=== PATIENT | female | born 1925 | race Caucasian/White ===

== ENCOUNTER 2016-03-04 | Outpatient (CLI) | payer MEDICARE, OTHER | END 2016-03-04 22:01 | disposition critical access hospital (66) | DX: R06.00 Dyspnea, unspecified (principal) | CPT/HCPCS: A0425; A0427 ==

== ENCOUNTER 2016-03-04 22:13 | Emergency (ER) | payer MEDICARE, OTHER ==
[2016-03-04] MEDS ORDERED: predniSONE 20 MG TABLET PO STA (23:26)
[2016-03-04] MEDS ORDERED: predniSONE 20 MG TABLET ONE (23:39)
[2016-03-05] MEDS ORDERED: ALBUTEROL NEB 2.5 MG/3 ML INH STA (02:49)
[2016-03-05] MEDS ORDERED: ALBUTEROL NEB 2.5 MG/3 ML INH ONE (02:53)
== END 2016-03-05 08:28 | disposition home or self-care (01) ==
DX: J45.901 Unspecified asthma with (acute) exacerbation (principal); J44.9 Chronic obstructive pulmonary disease, unspecified; I50.9 Heart failure, unspecified; G62.9 Polyneuropathy, unspecified; F03.90 Unspecified dementia, unspecified severity, without behavioral disturbance, psychotic disturbance, mood disturbance, and anxiety; Z79.02 Long term (current) use of antithrombotics/antiplatelets
CPT/HCPCS: 71020; 94640; 99283; 99284; J7512; J7613

== ENCOUNTER 2016-03-13 | Outpatient (CLI) | payer MEDICARE, OTHER | END 2016-03-13 15:53 | disposition critical access hospital (66) | DX: R06.02 Shortness of breath (principal) | CPT/HCPCS: A0425; A0429 ==

== ENCOUNTER 2016-03-13 16:06 | Emergency (ER) | payer MEDICARE, OTHER ==
[2016-03-13] MEDS ORDERED: ALBUTEROL NEB 2.5 MG/3 ML INH STA (16:14)
[2016-03-13] MEDS ORDERED: ALBUTEROL NEB 2.5 MG/3 ML INH ONE (16:27)
== END 2016-03-13 18:16 | disposition home or self-care (01) ==
DX: J45.901 Unspecified asthma with (acute) exacerbation (principal); I50.9 Heart failure, unspecified; F03.90 Unspecified dementia, unspecified severity, without behavioral disturbance, psychotic disturbance, mood disturbance, and anxiety; G62.9 Polyneuropathy, unspecified; M54.9 Dorsalgia, unspecified; G89.29 Other chronic pain
CPT/HCPCS: 94640; 99283; 99284; J7613

== ENCOUNTER 2016-05-02 | Outpatient (CLI) | payer MEDICARE, OTHER | END 2016-05-02 13:48 | disposition critical access hospital (66) | DX: R06.00 Dyspnea, unspecified (principal) | CPT/HCPCS: A0425; A0427 ==

== ENCOUNTER 2016-05-02 13:48 | Emergency (ER) | payer MEDICARE, OTHER ==
[2016-05-02] MEDS ORDERED: ALBUTEROL NEB 2.5 MG/3 ML INH STA (14:15)
[2016-05-02] MEDS ORDERED: predniSONE 20 MG TABLET PO STA (14:16)
[2016-05-02] MEDS ORDERED: predniSONE 20 MG TABLET ONE (14:24)
[2016-05-02] MEDS ORDERED: IPRATROPIUM/ALBUTEROL 3 ML NEB INH STA (15:02)
[2016-05-02] MEDS ORDERED: IPRATROPIUM/ALBUTEROL 3 ML NEB INH ONE (15:08)
[2016-05-02] MEDS ORDERED: ALBUTEROL NEB 2.5 MG/3 ML INH ONE (15:08)
== END 2016-05-02 18:33 | disposition home or self-care (01) ==
DX: J45.901 Unspecified asthma with (acute) exacerbation (principal); I50.9 Heart failure, unspecified; G62.9 Polyneuropathy, unspecified
CPT/HCPCS: 36415; 71010; 80053; 83690; 94640; 99283; 99284; J7512; J7613; J7620

== ENCOUNTER 2016-05-03 | Outpatient (CLI) | payer MEDICARE, OTHER | END 2016-05-03 16:33 | disposition critical access hospital (66) | DX: R06.00 Dyspnea, unspecified (principal) | CPT/HCPCS: A0425; A0427 ==

== ENCOUNTER 2016-05-03 16:52 | Inpatient (IN) | payer MEDICARE, OTHER ==
[2016-05-03] MEDS ORDERED: methylPREDNISolone SUCCINATE 125 MG/2 ML VIAL IVP STA (16:58)
[2016-05-03] MEDS ORDERED: ALBUTEROL NEB 2.5 MG/3 ML INH STA (16:58)
[2016-05-03] MEDS ORDERED: ALBUTEROL NEB 2.5 MG/3 ML INH ONE (17:06)
[2016-05-03] MEDS ORDERED: ONDANSETRON ODT 4 MG TABLET TL PRN (17:42)
[2016-05-03] MEDS ORDERED: ACETAMINOPHEN 325 MG TABLET PO PRN (17:42)
[2016-05-03] MEDS ORDERED: IPRATROPIUM/ALBUTEROL 3 ML NEB INH PRN (17:49)
[2016-05-03] MEDS: IPRATROPIUM/ALBUTEROL 3 ML NEB INH PRN ×3 (19:55→23:20)
[2016-05-03] MEDS ORDERED: methylPREDNISolone SUCCINATE 40 MG/ML VIAL IVP SCH (22:00)
[2016-05-03] MEDS ORDERED: AZITHROMYCIN 250 MG TABLET PO SCH (22:00)
[2016-05-03] MEDS ORDERED: predniSONE 20 MG TABLET PO SCH (22:00)
[2016-05-03] MEDS ORDERED: methylPREDNISolone SUCCINATE 125 MG/2 ML VIAL IVP SCH (22:35)
[2016-05-03] MEDS: CARVEDILOL 3.125 MG TABLET PO SCH (22:50)
[2016-05-03] MEDS: ATORVASTATIN 10 MG TABLET PO SCH (22:50)
[2016-05-03] MEDS ORDERED: guaiFENesin 600 MG TABLET PO PRN (22:50)
[2016-05-03] MEDS: SODIUM CHLORIDE 0.9% 1,000 ML IV SCH (22:51)
[2016-05-03] MEDS: SODIUM CHLORIDE FLUSH 0.9% 10 ML SYRINGE IVP SCH (22:52)
[2016-05-04] MEDS: IPRATROPIUM/ALBUTEROL 3 ML NEB INH PRN ×7 (01:50→21:30)
[2016-05-04] MEDS: BUTALB/ACETAM/CAFF 50/325/40MG TABLET PO PRN ×3 (01:54→08:13)
[2016-05-04] MEDS: ACETAMINOPHEN/CODEINE 300 MG/30 MG TABLET PO PRN ×3 (01:54→08:12)
[2016-05-04] MEDS: SODIUM CHLORIDE FLUSH 0.9% 10 ML SYRINGE IVP SCH ×3 (05:10→22:11)
[2016-05-04] MEDS: methylPREDNISolone SUCCINATE 40 MG/ML VIAL IVP SCH ×3 (05:49→22:10)
[2016-05-04] MEDS: SODIUM CHLORIDE 0.9% 1,000 ML IV SCH (06:39)
[2016-05-04] MEDS ORDERED: MORPHINE 10 MG/ML VIAL IVP ONE (08:30)
[2016-05-04] MEDS ORDERED: MORPHINE 2 MG/ML SYRINGE IVP ONE (08:30)
[2016-05-04] MEDS ORDERED: ENOXAPARIN 40 MG/0.4 ML SYRINGE SUBQ SCH (09:00)
[2016-05-04] MEDS: CARVEDILOL 3.125 MG TABLET PO SCH ×2 (09:59→22:11)
[2016-05-04] MEDS: CLOPIDOGREL 75 MG TABLET PO SCH (10:01)
[2016-05-04] MEDS: CITALOPRAM 10 MG TABLET PO SCH (10:01)
[2016-05-04] MEDS: AZITHROMYCIN INJ 500 MG in SODIUM CHLORIDE 0.9% 250 ML IV SCH (10:04)
[2016-05-04] MEDS: LORATADINE 10 MG TABLET PO SCH (10:36)
[2016-05-04] MEDS: LISINOPRIL 5 MG TABLET PO SCH (10:37)
[2016-05-04] MEDS ORDERED: LORazepam 2 MG/ML SYRINGE IVP PRN (11:18)
[2016-05-04] MEDS: POLYETHYLENE GLYCOL 3350 17 GM PACKET PO SCH (12:36)
[2016-05-04] MEDS: DEXTROSE 5% IV SCH ×2 (12:39→22:57)
[2016-05-04] MEDS: SODIUM BICARBONATE IV SCH ×2 (12:39→22:57)
[2016-05-04] MEDS: SODIUM CHLORIDE FLUSH 0.9% 10 ML SYRINGE IVP PRN (14:56)
[2016-05-04] MEDS: MORPHINE 2 MG/ML SYRINGE IVP PRN (21:52)
[2016-05-04] MEDS: ATORVASTATIN 10 MG TABLET PO SCH (22:11)
[2016-05-05] MEDS: IPRATROPIUM/ALBUTEROL 3 ML NEB INH PRN ×6 (00:30→23:00)
[2016-05-05] MEDS: SODIUM CHLORIDE FLUSH 0.9% 10 ML SYRINGE IVP SCH ×4 (07:26→23:45)
[2016-05-05] MEDS: methylPREDNISolone SUCCINATE 40 MG/ML VIAL IVP SCH ×3 (07:33→21:10)
[2016-05-05] MEDS: ACETAMINOPHEN/CODEINE 300 MG/30 MG TABLET PO PRN (07:33)
[2016-05-05] MEDS: MORPHINE 2 MG/ML SYRINGE IVP PRN ×2 (07:46→23:46)
[2016-05-05] MEDS: POLYETHYLENE GLYCOL 3350 17 GM PACKET PO SCH (08:40)
[2016-05-05] MEDS: LISINOPRIL 5 MG TABLET PO SCH (08:41)
[2016-05-05] MEDS: SODIUM CHLORIDE FLUSH 0.9% 10 ML SYRINGE IVP PRN ×2 (08:41→09:07)
[2016-05-05] MEDS: CITALOPRAM 10 MG TABLET PO SCH (08:41)
[2016-05-05] MEDS: CLOPIDOGREL 75 MG TABLET PO SCH (08:41)
[2016-05-05] MEDS: CARVEDILOL 3.125 MG TABLET PO SCH ×2 (08:41→20:31)
[2016-05-05] MEDS: LORATADINE 10 MG TABLET PO SCH (08:41)
[2016-05-05] MEDS: AZITHROMYCIN INJ 500 MG in SODIUM CHLORIDE 0.9% 250 ML IV SCH (08:43)
[2016-05-05] MEDS: SODIUM BICARBONATE IV SCH (08:44)
[2016-05-05] MEDS: DEXTROSE 5% IV SCH (08:44)
[2016-05-05] MEDS ORDERED: SENNA 8.6 MG TABLET PO ONE (09:00)
[2016-05-05] MEDS ORDERED: DOCUSATE SODIUM 250 MG CAPSULE PO ONE (09:00)
[2016-05-05] MEDS: FUROSEMIDE 20 MG/2 ML VIAL IVP SCH (09:06)
[2016-05-05] MEDS: ATORVASTATIN 10 MG TABLET PO SCH (20:15)
[2016-05-06] MEDS: IPRATROPIUM/ALBUTEROL 3 ML NEB INH PRN ×4 (03:45→10:00)
[2016-05-06] MEDS: BUTALB/ACETAM/CAFF 50/325/40MG TABLET PO PRN ×2 (06:11→11:14)
[2016-05-06] MEDS: ACETAMINOPHEN/CODEINE 300 MG/30 MG TABLET PO PRN ×2 (06:11→11:13)
[2016-05-06] MEDS: SODIUM CHLORIDE FLUSH 0.9% 10 ML SYRINGE IVP SCH (06:55)
[2016-05-06] MEDS: methylPREDNISolone SUCCINATE 40 MG/ML VIAL IVP SCH (06:55)
[2016-05-06] MEDS ORDERED: methylPREDNISolone SUCCINATE 40 MG/ML VIAL IVP SCH ×2 (09:00→21:00)
[2016-05-06] MEDS: FUROSEMIDE 20 MG/2 ML VIAL IVP SCH (09:08)
[2016-05-06] MEDS: AZITHROMYCIN INJ 500 MG in SODIUM CHLORIDE 0.9% 250 ML IV SCH (09:21)
[2016-05-06] MEDS: POLYETHYLENE GLYCOL 3350 17 GM PACKET PO SCH (09:22)
[2016-05-06] MEDS: CARVEDILOL 3.125 MG TABLET PO SCH (11:15)
[2016-05-06] MEDS: LISINOPRIL 5 MG TABLET PO SCH (11:18)
[2016-05-06] MEDS: CLOPIDOGREL 75 MG TABLET PO SCH (11:19)
[2016-05-06] MEDS: CITALOPRAM 10 MG TABLET PO SCH (11:20)
[2016-05-06] MEDS: LORATADINE 10 MG TABLET PO SCH (11:20)
== END 2016-05-06 13:12 | disposition home or self-care (01) | DRG 191 ==
DX: J44.1 Chronic obstructive pulmonary disease with (acute) exacerbation (principal); J45.901 Unspecified asthma with (acute) exacerbation; E03.9 Hypothyroidism, unspecified; Z91.14 Patient's other noncompliance with medication regimen; I25.10 Atherosclerotic heart disease of native coronary artery without angina pectoris; I25.2 Old myocardial infarction; F32.9 Major depressive disorder, single episode, unspecified; F03.90 Unspecified dementia, unspecified severity, without behavioral disturbance, psychotic disturbance, mood disturbance, and anxiety; E78.5 Hyperlipidemia, unspecified; I89.0 Lymphedema, not elsewhere classified; M81.0 Age-related osteoporosis without current pathological fracture; Z88.0 Allergy status to penicillin; I50.9 Heart failure, unspecified

== ENCOUNTER 2016-06-20 06:21 | Outpatient (CLI) | payer MEDICARE, OTHER | END 2016-06-20 06:22 | disposition critical access hospital (66) | DX: M25.551 Pain in right hip (principal); W06.XXXA Fall from bed, initial encounter; Y92.193 Bedroom in other specified residential institution as the place of occurrence of the external cause ==

== ENCOUNTER 2016-06-20 06:37 | Emergency (ER) | payer MEDICARE, OTHER ==
[2016-06-20] MEDS ORDERED: IPRATROPIUM/ALBUTEROL 3 ML NEB INH STA (06:42)
[2016-06-20] MEDS ORDERED: IPRATROPIUM/ALBUTEROL 3 ML NEB INH ONE (06:45)
[2016-06-20 07:22] LABS: ABG PCO2 38 mmHg (34-45); ABG PH 7.32 (7.35-7.45); ABG PO2 96 mmHg (80-100)
--- NOTE | 2016-06-20 07:23 | ED Physician Documentation ---
PD HPI Fall - Stated complaint Stated Complaint: RT HIP PX - Chief complaint Chief Complaint: General - History obtained from History obtained from: Patient, EMS - History of Present Illness Mechanism of injury: Other (rolled out of bed) Fall distance: From bed Where injury occurred: Home Timing - onset: Today Injury(ies) location: Right Lower Extremity Quality of pain: Pain Associated symptoms: Dyspnea. No: LOC, AMS, Amnesia, Seizures, Ear drainage, Nasal drainage Symptoms improve with: Rest Worsens with: Movement, Palpation Contributing factors: No: Anticoagulated Similar symptoms before: Has not had sx before Recently seen: Admitted (discharged from the hosptial 6 weeks ago for an exacerbation of COPD.) - Additional information Additional information: 89 y/o female with a long history of COPD rolled out of bed and landed on her right side this morning. She is complaining of pain in the right femur and hip. She denies current illness. Review of Systems Constitutional: denies: Fever Eyes: denies: Decreased vision Nose: denies: Congestion Throat: denies: Sore throat Respiratory: reports: Dyspnea, Cough GI: denies: Vomiting : denies: Dysuria Skin: denies: Rash Musculoskeletal: reports: Extremity pain, Extremity swelling. denies: Neck pain , Back pain Neurologic: reports: Generalized weakness. 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 HEENT: Tonsil/Adenoidectomy - Present Medications Home Medications: Ambulatory Orders Medication Instructions Recorded Confirmed Atorvastatin [Lipitor] 20 mg PO QPM 09/11/15 05/02/16 Butalbit/Acetamin/Caff/Codeine 1 each PO Q4H PRN MDD 4 10/17/15 05/02/16 [Fioricet-Cod [id number] Cap] Carvedilol [Coreg] 1.5625 mg PO BID 10/17/15 05/02/16 Citalopram [CeleXA] 10 mg PO DAILY 10/17/15 05/02/16 Clopidogrel [Plavix] 75 mg PO DAILY 10/17/15 05/02/16 Fluticasone/Salmeterol [Advair 1 puffs INH BID 10/17/15 05/02/16 250-50 Diskus] Lisinopril 2.5 mg PO DAILY 10/17/15 05/02/16 Loratadine [Claritin] 10 mg PO DAILY 10/17/15 05/02/16 Ipratropium/Albuterol [Duoneb] 3 ml INH Q6HR #120 neb 10/19/15 05/02/16 Albuterol Sulfate 2.5 mg IH Q6H PRN #1 bot 05/02/16 Albuterol Sulfate [Proventil Hfa 1 - 2 puffs IH Q4H PRN #1 05/02/16 Inhaler] [email or web address] predniSONE [Deltasone] 60 mg PO DAILY 5 Days 05/02/16 Azithromycin 500 mg PO DAILY #5 tablet 05/06/16 - Allergies Allergies/Adverse Reactions: Allergies Allergy/AdvReac Type Severity Reaction Status Date / Time aspirin Allergy Unknown unknown Verified 03/04/16 22:26 levofloxacin [From Levaquin] Allergy Unknown unknown Verified 03/04/16 22:26 NSAIDS (Non-Steroidal Allergy Unknown Unknown Verified 03/04/16 22:26 Anti-Inflamma Penicillins Allergy Unknown unknown Verified 03/04/16 22:26 black pepper Allergy Unknown Verified 03/04/16 22:26 - Social History Does the pt smoke?: No Smoking Status: Never smoker Does the pt drink ETOH?: No Does the pt have substance abuse?: No - Immunizations Immunizations are current?: Yes Immunizations: TDAP >10years/unknown - POLST Patient has POLST: Yes PD ED PE NORMAL - Vitals Vital signs reviewed: Yes (normal except O2 sat) - General General: No acute distress, Well developed/nourished - HEENT HEENT: Other (There is a 1cm laceration to the occiput that does not involve deeper structures. ) - Neck Neck: Supple, no meningeal sign - Respiratory Respiratory: Other (tachypneic at rest with diminished breath sounds. ) - Abdomen Abdomen: Soft, Non tender - Derm Derm: Normal color, Warm and dry, No rash - Extremities Extremities: Other (There is marked lymphedema present on the left LE chronically. There is mild tenderness to the right lateral thigh and to the trochanter. There is no shortening. There is rotation of the right foot laterally. ) - Neuro Neuro: No motor deficit, No sensory deficit, Normal speech - Psych Psych: Normal mood, Normal affect Results - Vitals Vitals: Vital Signs - 24 hr 06/20/16 06/20/16 06:40 06:55 Temperature 36.1 C L Heart Rate 76 86 Respiratory 20 14 Rate Blood Pressure 124/66 Oxygen O2 Source [Without Activity] Room air O2 Source Room air - Labs Labs: Laboratory Tests 06/20/16 07:19 Bld Gas Analysis Time 0717 Sample Site RIGHT RADIAL ABG pH 7.32 L ABG pCO2 38 ABG pO2 96 ABG HCO3 19.2 L ABG Total CO2 20.4 L ABG O2 Saturation 97 ABG Base Excess -6.3 L Zachary Test POSITIVE Room Air YES Procedures - Laceration (location) scalp occiput Length in cm: 1 Wound type: Linear, Clean Neurovascular status: Sensory intact, Motor intact, Vascular intact Wound Preparation: Irrigated copiously NS, Wound explored, To the base Skin layer closure: Eleni (X1) Other: Patient tolerated well, No complications, Neurovascular intact PD MEDICAL DECISION MAKING - ED course Complexity details: reviewed old records, reviewed results, re-evaluated patient , considered differential, d/w patient ED course: 89 y/o female with a history of COPD has fallen out of bed onto her right hip. She has some pain there but is able to stand and bear weight. She has a small laceration to the scalp as well and this is cleaned and stapled with a single staple. She repeatedly states she feels her usual and wants to go home. She did require a duo-neb treatment here. Departure - Departure Disposition: 01 Home, Self Care Clinical Impression: Contusion, hip and thigh Qualifiers: Encounter type: initial encounter Laterality: right Qualified Code(s): S70.01XA - Contusion of right hip, initial encounter; S70.11XA - Contusion of right thigh, initial encounter Scalp laceration Qualifiers: Encounter type: initial encounter Qualified Code(s): S01.01XA - Laceration without foreign body of scalp, initial encounter Condition: Stable Instructions: ED Contusion Hip, ED Laceration Ext Sutr Stap Tape Follow-Up: Jaleel Souza MD [Primary Care Provider] -
[2016-06-20 07:24] LABS: ABG BASE EXCESS -6.3 mmol/L (-2.0-3.0); ABG HCO3 19.2 mmol/L (22.0-26.0); ABG OXYGEN SATURATION 97 % (94-98); ABG SITE OF DRAW RIGHT RADIAL; ABG TCO2 20.4 MMOL/L (21.0-29.0); ALLEN TEST POSITIVE
[2016-06-20 07:25] LABS: ABG ROOM AIR YES
--- NOTE | 2016-06-20 08:27 | XRAY Preliminary Report ---
Exam: XR Femur 2V RT IMPRESSION: Bony demineralization. No acute fracture or dislocation identified. [facility] SITE ID: [id number]
--- NOTE | 2016-06-20 08:29 | XRAY Preliminary Report ---
Exam: XR Hip w/Pelvis 2-3V RT IMPRESSION: Bony demineralization. No acute fracture or dislocation identified. [facility] SITE ID: [id number]
--- NOTE | 2016-06-20 08:30 | XRAY Report ---
EXAM: RIGHT FEMUR RADIOGRAPHY EXAM DATE: 06/20/2016 07:44 AM. CLINICAL HISTORY: Fall pain. COMPARISON: None. TECHNIQUE: 2 views. FINDINGS: Bones: Bony demineralization. No acute fracture or focal osseous destruction identified. Joints: No dislocation. Degenerative changes are noted. Soft Tissues: Multiple surgical clips overlying the right pelvis. Atherosclerotic facet or calcificat ion. IMPRESSION: Bony demineralization. No acute fracture or dislocation identified. [facility] Referring Provider Line: [phone] SITE ID: [id number]
--- NOTE | 2016-06-20 08:32 | XRAY Report ---
EXAM: RIGHT HIP AND PELVIS RADIOGRAPHY EXAM DATE: 06/20/2016 07:45 AM. HISTORY: Fall pain. COMPARISONS: None. TECHNIQUE: 1 view of the pelvis and 1 view of the hip. FINDINGS: Bones: Bony demineralization. No acute fracture identified. Joints: No dislocation. Mild degenerative changes. Soft Tissues: Multiple surgical clips overlying the pelvis. Atherosclerotic vascular calcification. IMPRESSION: Bony demineralization. No acute fracture or dislocation identified. [facility] Referring Provider Line: [phone] SITE ID: [id number]
[2016-06-20 08:35] VITALS: BP 111/65
== END 2016-06-20 09:21 | disposition home or self-care (01) ==
LOC: EDUNIT# → ED 06:37
DX: S01.01XA Laceration without foreign body of scalp, initial encounter (principal); S70.01XA Contusion of right hip, initial encounter; S70.11XA Contusion of right thigh, initial encounter; W06.XXXA Fall from bed, initial encounter; Y92.003 Bedroom of unspecified non-institutional (private) residence as the place of occurrence of the external cause; J44.9 Chronic obstructive pulmonary disease, unspecified; J45.909 Unspecified asthma, uncomplicated; I50.9 Heart failure, unspecified; G62.9 Polyneuropathy, unspecified; F03.90 Unspecified dementia, unspecified severity, without behavioral disturbance, psychotic disturbance, mood disturbance, and anxiety; Z79.02 Long term (current) use of antithrombotics/antiplatelets
CPT/HCPCS: 36600; 82803; 94640; 99284

== ENCOUNTER 2016-06-20 13:56 | Outpatient (CLI) | payer MEDICARE, OTHER | END 2016-06-20 13:57 | disposition critical access hospital (66) | DX: R06.00 Dyspnea, unspecified (principal); M25.551 Pain in right hip; W06.XXXA Fall from bed, initial encounter; Y92.193 Bedroom in other specified residential institution as the place of occurrence of the external cause | CPT/HCPCS: A0425; A0427; A0429 ==

== ENCOUNTER 2016-06-20 14:16 | Inpatient (IN) | payer MEDICARE, OTHER ==
[2016-06-20] MEDS ORDERED: ALBUTEROL NEB 2.5 MG/3 ML INH STA (14:54)
[2016-06-20] MEDS ORDERED: ALBUTEROL NEB 2.5 MG/3 ML INH ONE (15:01)
[2016-06-20] MEDS ORDERED: methylPREDNISolone SUCCINATE 125 MG/2 ML VIAL IVP ONE (15:18)
[2016-06-20] MEDS ORDERED: methylPREDNISolone SUCCINATE 125 MG/2 ML VIAL IVP STA (15:18)
[2016-06-20] MEDS ORDERED: LEVALBUTEROL 1.25 MG INH STA ×2 (15:54→17:58)
[2016-06-20] MEDS ORDERED: LEVALBUTEROL 1.25 MG INH ONE ×2 (16:07→18:17)
[2016-06-20] MEDS ORDERED: SODIUM CHLORIDE INHALATION 3 ML NEB ONE ×2 (16:07→18:17)
[2016-06-20] MEDS ORDERED: AZITHROMYCIN 250 MG TABLET PO STA (17:07)
[2016-06-20] MEDS ORDERED: AZITHROMYCIN 250 MG TABLET PO ONE (17:27)
[2016-06-20] MEDS ORDERED: ONDANSETRON ODT 4 MG TABLET TL PRN (20:16)
[2016-06-20] MEDS ORDERED: ACETAMINOPHEN 325 MG TABLET PO PRN (20:16)
[2016-06-20] MEDS ORDERED: BUTALB/ACETAM/CAFF 50/325/40MG TABLET PO PRN (20:17)
[2016-06-20] MEDS: IPRATROPIUM/ALBUTEROL 3 ML NEB INH SCH (21:25)
[2016-06-20] MEDS: ATORVASTATIN 10 MG TABLET PO SCH ×2 (22:23→22:27)
[2016-06-20] MEDS: CARVEDILOL 3.125 MG TABLET PO SCH (22:23)
[2016-06-20] MEDS: SODIUM CHLORIDE FLUSH 0.9% 10 ML SYRINGE IVP SCH ×3 (22:24→22:32)
[2016-06-20] MEDS: methylPREDNISolone SUCCINATE 40 MG/ML VIAL IVP SCH ×2 (22:24→22:31)
[2016-06-21] MEDS: IPRATROPIUM/ALBUTEROL 3 ML NEB INH SCH ×4 (03:10→21:00)
[2016-06-21] MEDS: ALBUTEROL NEB 2.5 MG/3 ML INH PRN ×2 (04:45→06:20)
[2016-06-21] MEDS: methylPREDNISolone SUCCINATE 40 MG/ML VIAL IVP SCH ×2 (05:53→13:33)
[2016-06-21] MEDS: SODIUM CHLORIDE FLUSH 0.9% 10 ML SYRINGE IVP PRN (05:54)
[2016-06-21] MEDS: POLYETHYLENE GLYCOL 3350 17 GM PACKET PO SCH (08:38)
[2016-06-21] MEDS: CARVEDILOL 3.125 MG TABLET PO SCH ×2 (08:39→21:44)
[2016-06-21] MEDS: AZITHROMYCIN 250 MG TABLET PO SCH (08:39)
[2016-06-21] MEDS: LISINOPRIL 5 MG TABLET PO SCH (08:40)
[2016-06-21] MEDS: CLOPIDOGREL 75 MG TABLET PO SCH (08:40)
[2016-06-21] MEDS: LORATADINE 10 MG TABLET PO SCH (08:41)
[2016-06-21] MEDS: predniSONE 20 MG TABLET PO SCH (08:41)
[2016-06-21] MEDS: CITALOPRAM 10 MG TABLET PO SCH (08:41)
[2016-06-21] MEDS: HYDROcod/ACETAM 5/325 MG TABLET PO PRN ×2 (08:42→13:30)
[2016-06-21] MEDS: SODIUM CHLORIDE FLUSH 0.9% 10 ML SYRINGE IVP SCH ×2 (13:33→22:00)
[2016-06-21] MEDS ORDERED: MORPHINE SOL 10 MG/0.5 ML SYRINGE PO PRN ×2 (13:35→14:58)
[2016-06-21] MEDS: ATORVASTATIN 10 MG TABLET PO SCH (21:45)
[2016-06-22] MEDS: ALBUTEROL NEB 2.5 MG/3 ML INH PRN ×2 (01:55→08:14)
[2016-06-22] MEDS: IPRATROPIUM/ALBUTEROL 3 ML NEB INH SCH ×4 (03:30→20:30)
[2016-06-22] MEDS: SODIUM CHLORIDE FLUSH 0.9% 10 ML SYRINGE IVP SCH ×3 (06:09→20:18)
[2016-06-22] MEDS: HYDROcod/ACETAM 5/325 MG TABLET PO PRN (07:40)
[2016-06-22] MEDS: predniSONE 20 MG TABLET PO SCH (09:03)
[2016-06-22] MEDS: CARVEDILOL 3.125 MG TABLET PO SCH ×2 (09:08→20:08)
[2016-06-22] MEDS: CLOPIDOGREL 75 MG TABLET PO SCH (09:08)
[2016-06-22] MEDS: LORATADINE 10 MG TABLET PO SCH (09:08)
[2016-06-22] MEDS: CITALOPRAM 10 MG TABLET PO SCH (09:08)
[2016-06-22] MEDS: POLYETHYLENE GLYCOL 3350 17 GM PACKET PO SCH (09:08)
[2016-06-22] MEDS: AZITHROMYCIN 250 MG TABLET PO SCH (09:08)
[2016-06-22] MEDS: LISINOPRIL 5 MG TABLET PO SCH (09:08)
[2016-06-22] MEDS: oxyCODONE 5 MG TABLET PO PRN ×3 (09:58→18:51)
[2016-06-22] MEDS: ATORVASTATIN 10 MG TABLET PO SCH (20:08)
[2016-06-22] MEDS: diazePAM INJ 5 MG/ML SYRINGE IVP PRN (20:15)
[2016-06-23] MEDS: IPRATROPIUM/ALBUTEROL 3 ML NEB INH SCH ×4 (03:20→18:06)
[2016-06-23] MEDS: SODIUM CHLORIDE FLUSH 0.9% 10 ML SYRINGE IVP SCH ×3 (06:42→20:30)
[2016-06-23] MEDS: CITALOPRAM 10 MG TABLET PO SCH (08:01)
[2016-06-23] MEDS: POLYETHYLENE GLYCOL 3350 17 GM PACKET PO SCH (08:01)
[2016-06-23] MEDS: LORATADINE 10 MG TABLET PO SCH (08:01)
[2016-06-23] MEDS: CLOPIDOGREL 75 MG TABLET PO SCH (08:01)
[2016-06-23] MEDS: predniSONE 20 MG TABLET PO SCH (08:01)
[2016-06-23] MEDS: CARVEDILOL 3.125 MG TABLET PO SCH ×2 (08:02→20:27)
[2016-06-23] MEDS: LISINOPRIL 5 MG TABLET PO SCH (08:02)
[2016-06-23] MEDS: ATORVASTATIN 10 MG TABLET PO SCH (20:28)
[2016-06-23] MEDS: oxyCODONE 5 MG TABLET PO PRN (20:29)
[2016-06-24] MEDS: IPRATROPIUM/ALBUTEROL 3 ML NEB INH SCH ×4 (02:17→22:15)
[2016-06-24] MEDS: ALBUTEROL NEB 2.5 MG/3 ML INH PRN ×4 (02:32→18:24)
[2016-06-24] MEDS: SODIUM CHLORIDE FLUSH 0.9% 10 ML SYRINGE IVP SCH ×3 (02:38→22:06)
[2016-06-24] MEDS: diazePAM INJ 5 MG/ML SYRINGE IVP PRN (02:38)
[2016-06-24] MEDS: CLOPIDOGREL 75 MG TABLET PO SCH (09:17)
[2016-06-24] MEDS: POLYETHYLENE GLYCOL 3350 17 GM PACKET PO SCH (09:17)
[2016-06-24] MEDS: LORATADINE 10 MG TABLET PO SCH (09:18)
[2016-06-24] MEDS: CITALOPRAM 10 MG TABLET PO SCH (09:18)
[2016-06-24] MEDS: CARVEDILOL 3.125 MG TABLET PO SCH ×2 (09:18→22:06)
[2016-06-24] MEDS: LISINOPRIL 5 MG TABLET PO SCH (09:18)
[2016-06-24] MEDS: predniSONE 20 MG TABLET PO SCH (09:19)
[2016-06-24] MEDS: oxyCODONE 5 MG TABLET PO PRN ×2 (10:09→19:17)
[2016-06-24] MEDS ORDERED: LIDOCAINE PATCH 5% TOP PRN (15:11)
[2016-06-24] MEDS: LIDOCAINE OINTMENT 5% 35.44 GM TUBE TOP SCH ×2 (19:32→22:15)
[2016-06-24] MEDS: ATORVASTATIN 10 MG TABLET PO SCH (22:06)
[2016-06-25] MEDS: IPRATROPIUM/ALBUTEROL 3 ML NEB INH SCH (03:17)
[2016-06-25] MEDS: SODIUM CHLORIDE FLUSH 0.9% 10 ML SYRINGE IVP PRN ×2 (03:21→14:56)
[2016-06-25] MEDS: diazePAM INJ 5 MG/ML SYRINGE IVP PRN ×2 (03:21→14:56)
[2016-06-25] MEDS: ALBUTEROL NEB 2.5 MG/3 ML INH PRN (05:45)
[2016-06-25] MEDS: SODIUM CHLORIDE FLUSH 0.9% 10 ML SYRINGE IVP SCH ×2 (06:34→13:22)
[2016-06-25] MEDS ORDERED: IPRATROPIUM 0.2 MG/ML NEB INH PRN (07:56)
[2016-06-25] MEDS ORDERED: ALBUTEROL NEB 2.5 MG/3 ML INH PRN (07:56)
[2016-06-25] MEDS ORDERED: NITROGLYCERIN SL 0.4 MG TABLET SL PRN (08:30)
[2016-06-25] MEDS: CLOPIDOGREL 75 MG TABLET PO SCH (08:50)
[2016-06-25] MEDS: CITALOPRAM 10 MG TABLET PO SCH (08:50)
[2016-06-25] MEDS: LORATADINE 10 MG TABLET PO SCH (08:50)
[2016-06-25] MEDS: CARVEDILOL 3.125 MG TABLET PO SCH (08:51)
[2016-06-25] MEDS: LISINOPRIL 5 MG TABLET PO SCH (08:53)
[2016-06-25] MEDS: POLYETHYLENE GLYCOL 3350 17 GM PACKET PO SCH (08:53)
[2016-06-25] MEDS: LIDOCAINE OINTMENT 5% 35.44 GM TUBE TOP SCH ×3 (08:54→14:48)
[2016-06-25] MEDS ORDERED: SENNA 8.6 MG TABLET PO PRN (09:00)
[2016-06-25] MEDS ORDERED: predniSONE 10 MG TABLET PO SCH (09:30)
[2016-06-25] MEDS ORDERED: FORMOTEROL FUMARATE NEB 20 MCG/2 ML INH SCH (10:00)
[2016-06-25] MEDS ORDERED: BUDESONIDE 0.5 MG/2 ML NEB INH SCH (10:00)
[2016-06-25] MEDS: oxyCODONE 5 MG TABLET PO PRN (14:55)
== END 2016-06-25 16:30 | DRG 191 ==
DX: J44.1 Chronic obstructive pulmonary disease with (acute) exacerbation (principal); J45.902 Unspecified asthma with status asthmaticus; I11.0 Hypertensive heart disease with heart failure; I50.9 Heart failure, unspecified; D70.9 Neutropenia, unspecified; I27.81 Cor pulmonale (chronic); I25.10 Atherosclerotic heart disease of native coronary artery without angina pectoris; D72.819 Decreased white blood cell count, unspecified; E03.9 Hypothyroidism, unspecified; D64.9 Anemia, unspecified; E78.5 Hyperlipidemia, unspecified; I89.0 Lymphedema, not elsewhere classified; H91.90 Unspecified hearing loss, unspecified ear; H54.7 Unspecified visual loss; F03.90 Unspecified dementia, unspecified severity, without behavioral disturbance, psychotic disturbance, mood disturbance, and anxiety; I87.2 Venous insufficiency (chronic) (peripheral); Z66 Do not resuscitate; Z79.51 Long term (current) use of inhaled steroids; Z79.52 Long term (current) use of systemic steroids; Z79.899 Other long term (current) drug therapy; F32.9 Major depressive disorder, single episode, unspecified; F09 Unspecified mental disorder due to known physiological condition; M25.551 Pain in right hip; W18.30XA Fall on same level, unspecified, initial encounter; G89.29 Other chronic pain; M25.562 Pain in left knee; M25.561 Pain in right knee; M25.572 Pain in left ankle and joints of left foot; M25.571 Pain in right ankle and joints of right foot; M54.9 Dorsalgia, unspecified; E78.2 Mixed hyperlipidemia; Z91.14 Patient's other noncompliance with medication regimen; Z91.81 History of falling; Y93.9 Activity, unspecified; Y92.199 Unspecified place in other specified residential institution as the place of occurrence of the external cause; Y99.9 Unspecified external cause status; E03.8 Other specified hypothyroidism; Z87.891 Personal history of nicotine dependence; I25.2 Old myocardial infarction; T14.8 Other injury of unspecified body region; F41.9 Anxiety disorder, unspecified; S01.01XA Laceration without foreign body of scalp, initial encounter; S70.01XA Contusion of right hip, initial encounter; S70.11XA Contusion of right thigh, initial encounter; J45.909 Unspecified asthma, uncomplicated; G62.9 Polyneuropathy, unspecified; Z79.02 Long term (current) use of antithrombotics/antiplatelets

== ENCOUNTER 2017-01-06 17:54 | Outpatient (CLI) | payer MEDICARE, OTHER | END 2017-01-06 17:55 | disposition critical access hospital (66) | LOC: EMS 17:54 | PROVIDERS: ATTEND Surgery | DX: R05 Cough (principal) | CPT/HCPCS: A0425; A0429 ==

== ENCOUNTER 2017-03-08 21:29 | Outpatient (CLI) | payer MEDICARE, OTHER | END 2017-03-08 21:30 | disposition critical access hospital (66) | LOC: EMS 21:29 | PROVIDERS: ATTEND Surgery | DX: M54.5 Low back pain (principal); W19.XXXA Unspecified fall, initial encounter | CPT/HCPCS: A0425; A0429 ==

== ENCOUNTER 2017-03-08 21:48 | Emergency (ER) | payer MEDICARE, OTHER ==
--- NOTE | 2017-03-08 22:43 | XRAY Report ---
EXAM: RIGHT RIB RADIOGRAPHY EXAM DATE: 03/08/2017 10:19 PM. CLINICAL HISTORY: Fall, right posterior rib pain. COMPARISON: Chest, 01/06/2017. TECHNIQUE: 1 view of the chest and 2 views of the ribs. FINDINGS: Bones: Right 10th rib fracture. Osteopenia. Generative changes and scoliosis in the spine. Lungs: No alveolar consolidation or pleural effusion seen. No pneumothorax. Mediastinum: Heart size is normal. Aortic atherosclerosis. Other: None. IMPRESSION: 1. Osteopenia with right 10th rib fracture. [facility] Referring Provider Line: [phone] SITE ID: [id number]
[2017-03-08] MEDS ORDERED: LIDOCAINE PATCH 5% TOP STA (23:18)
--- NOTE | 2017-03-08 23:20 | ED Physician Documentation ---
PD HPI Fall - Stated complaint Stated Complaint: GLF - History obtained from History obtained from: Patient, EMS - History of Present Illness Mechanism of injury: Tripped Fall distance: Sitting position Where injury occurred: Home Timing - onset: Today Injury(ies) location: Back Quality of pain: Pain, Aching Associated symptoms: No: LOC, AMS, Amnesia Worsens with: Movement, Palpation Similar symptoms before: No diagnosis Recently seen: Not recently seen - Additional information Additional information: Patient is an 89 year old female who is presenting to the emergency department for back pain after falling. patient states that she slipped and fell backwards landing on her back. patient complains of back pain but no other injuries. Patient denies any chest pain, shortness of breath, loc or head pain. Review of Systems Constitutional: denies: Fever, Chills Eyes: reports: Reviewed and negative Ears: reports: Reviewed and negative Nose: reports: Reviewed and negative Throat: denies: Dental pain / toothache Cardiac: denies: Chest pain / pressure, Palpitations Respiratory: denies: Cough, Wheezing GI: denies: Nausea, Vomiting : reports: Reviewed and negative. 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 HEENT: Tonsil/Adenoidectomy - Present Medications Home Medications: Ambulatory Orders Medication Instructions Recorded Confirmed Albuterol Sulfate [Proventil Hfa 1 - 2 puffs IH Q4H PRN #1 05/02/16 03/08/17 Inhaler] [email or web address] Ipratropium [Atrovent] 0.5 mg INH TID PRN 06/21/16 03/08/17 Nitroglycerin [Nitrostat] 0.3 mg SL Q5M PRN 06/21/16 03/08/17 predniSONE [Prednisone] 10 mg PO DAILY 06/21/16 03/08/17 Albuterol Sulfate [Proair Hfa 2 puffs PO Q4HR 01/06/17 01/06/17 Inhaler] Butalb/Acetaminophen/Caffeine 1 tab PO QID 01/06/17 03/08/17 [Fioricet 50-300-40 mg Capsule] Magnesium Hydroxide [Milk of 30 ml PO DAILY PRN 01/06/17 03/08/17 Magnesia] Lidocaine Patch 5% [Lidoderm Patch] 1 each TOP DAILY #10 patch 03/08/17 - Allergies Allergies/Adverse Reactions: Allergies Allergy/AdvReac Type Severity Reaction Status Date / Time aspirin Allergy Unknown unknown Verified 03/08/17 21:56 levofloxacin [From Levaquin] Allergy Unknown unknown Verified 03/08/17 21:56 NSAIDS (Non-Steroidal Allergy Unknown Unknown Verified 03/08/17 21:56 Anti-Inflamma Penicillins Allergy Unknown unknown Verified 03/08/17 21:56 black pepper Allergy Unknown Verified 03/08/17 21:56 - Social History Does the pt smoke?: No Smoking Status: Former smoker Does the pt drink ETOH?: No Does the pt have substance abuse?: No - Immunizations Immunizations are current?: Yes Immunizations: TDAP >10years/unknown - POLST Patient has POLST: Yes PD ED PE NORMAL - Vitals Vital signs reviewed: Yes - General General: Alert and oriented X 3, No acute distress - HEENT HEENT: Atraumatic, PERRL - Neck Neck: No bony TTP - Cardiac Cardiac: RRR - Respiratory Respiratory: No respiratory distress - Abdomen Abdomen: Soft, Non distended - Neuro Neuro: Alert and oriented X 3, No motor deficit, Normal speech Eye Opening: Spontaneous Motor: Obeys Commands Verbal: Oriented GCS Score: 15 PD ED PE EXPANDED - Back Back: Other (tenderness to palpation of right back) Results - Vitals Vitals: Vital Signs - 24 hr 03/08/17 21:51 Temperature 36.5 C Heart Rate 95 Respiratory 18 Rate Blood Pressure 140/79 H O2 Saturation 94 Oxygen O2 Source [With Activity] Room air O2 Source [Without Activity] Room air O2 Source Room air - Rads (name of study) rib series Radiology: Final report received (right 10th rib fracture) PD MEDICAL DECISION MAKING - ED course Complexity details: reviewed old records, reviewed results, re-evaluated patient , considered differential, d/w patient ED course: Patient was seen and examined at bedside. patient was awake, alert and oriented and denied any loc. Imaging was ordered. When patient returned from imaging the results were reviewed. there was a non displaced 10th rib fracture. patient was given a lidoderm patch and was stable for discharge with outpatient follow up. Departure - Departure Disposition: 01 Home, Self Care Clinical Impression: Fracture, rib Condition: Good Instructions: ED Fx Rib Follow-Up: Jaleel Souza MD [Primary Care Provider] - Within 1 week Prescriptions: Lidocaine Patch 5% [Lidoderm Patch] 1 each TOP DAILY #10 patch Comments: Your symptoms today are being caused by a rib fracture. You will be given a lidoderm patch and you can also take tylenol for pain. it is important that you take deep breaths throughout the day. Fractures can take weeks to heal. You should ice the injury. You should follow up with your doctor early next week. You may return to the emergency department at any time for new, worsening or uncontrollable symptoms.
[2017-03-09 01:08] VITALS: BP 135/72
== END 2017-03-09 01:08 | disposition home or self-care (01) ==
LOC: EDUNIT# → SUPCPDRO 21:48 → ED 21:48
DX: S22.31XA Fracture of one rib, right side, initial encounter for closed fracture (principal); W01.0XXA Fall on same level from slipping, tripping and stumbling without subsequent striking against object, initial encounter; Y92.019 Unspecified place in single-family (private) house as the place of occurrence of the external cause; I50.9 Heart failure, unspecified; J45.909 Unspecified asthma, uncomplicated; F03.90 Unspecified dementia, unspecified severity, without behavioral disturbance, psychotic disturbance, mood disturbance, and anxiety; G62.9 Polyneuropathy, unspecified; Z87.891 Personal history of nicotine dependence
CPT/HCPCS: 71101; 99283; 99284; A9270

== ENCOUNTER 2017-03-23 12:23 | Outpatient (CLI) | payer MEDICARE, OTHER | END 2017-03-23 12:24 | disposition critical access hospital (66) | LOC: EMS 12:23 | PROVIDERS: ATTEND Surgery | DX: R06.00 Dyspnea, unspecified (principal) | CPT/HCPCS: A0425; A0427 ==

== ENCOUNTER 2017-03-23 12:40 | Emergency (ER) | payer MEDICARE, OTHER ==
--- NOTE | 2017-03-23 13:43 | ED Physician Documentation ---
PD HPI DYSPNEA - Stated complaint Stated Complaint: DIFFICULTY BREATHING - Chief complaint Chief Complaint: Resp - History obtained from History obtained from: Patient, EMS - History of Present Illness Timing - onset: Today, Last night Timing - onset during: Rest Timing - duration: Hours (had feeling of usual asthma attack last this morning and neb did not work. Duoneb enroute by EMS helped and she is feeling at baseline almost. No URI symptoms. Had missed her usual neb last evening due to being at new caregiver and she had not asked for it (they did not routinely give her the neb), so she felt "behind" from that this morning and wheezing more.) Timing - details: Gradual onset, Now resolved (improved enroute with Duoneb treatment by EMS.) Inciting event(s): No: Out of meds, URI, Exposure (ie smoke) Improved by: Inhaler/neb Worsened by: Laying flat Associated symptoms: Wheezing. No: Fever, Cough, Chest pain / discomfort, Palpitations, Bilateral edema Similar symptoms before: Diagnosis Recently seen: Not recently seen Review of Systems Constitutional: denies: Fever, Chills Nose: denies: Rhinorrhea / runny nose, Congestion Throat: denies: Sore throat Respiratory: reports: Dyspnea, Wheezing. 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 HEENT: Tonsil/Adenoidectomy - Present Medications Home Medications: Ambulatory Orders Medication Instructions Recorded Confirmed Ipratropium [Atrovent] 0.5 mg INH TID PRN 06/21/16 03/23/17 Nitroglycerin [Nitrostat] 0.3 mg SL Q5M PRN 06/21/16 03/23/17 predniSONE [Prednisone] 10 mg PO DAILY 06/21/16 03/23/17 Butalb/Acetaminophen/Caffeine 1 tab PO QID 01/06/17 03/23/17 [Fioricet 50-300-40 mg Capsule] Magnesium Hydroxide [Milk of 30 ml PO DAILY PRN 01/06/17 03/23/17 Magnesia] Albuterol Sulf [Ventolin Hfa 1 - 2 puffs INH Q4HR PRN #1 inhaler 03/23/17 Inhaler] Albuterol Sulfate [Proventil Hfa 2 puffs IH Q6HR PRN 03/23/17 03/23/17 Inhaler] - Allergies Allergies/Adverse Reactions: Allergies Allergy/AdvReac Type Severity Reaction Status Date / Time aspirin Allergy Unknown unknown Verified 03/23/17 12:50 levofloxacin [From Levaquin] Allergy Unknown unknown Verified 03/23/17 12:50 NSAIDS (Non-Steroidal Allergy Unknown Unknown Verified 03/23/17 12:50 Anti-Inflamma Penicillins Allergy Unknown unknown Verified 03/23/17 12:50 black pepper Allergy Unknown Verified 03/23/17 12:50 - Social History Does the pt smoke?: No Smoking Status: Never smoker Does the pt drink ETOH?: No Does the pt have substance abuse?: No - Immunizations Immunizations are current?: Yes Immunizations: TDAP >10years/unknown - POLST Patient has POLST: Yes PD ED PE NORMAL - Vitals Vital signs reviewed: Yes - General General: Alert and oriented X 3, Well developed/nourished - HEENT HEENT: Pharynx benign - Neck Neck: Supple, no meningeal sign, No adenopathy - Cardiac Cardiac: RRR, No murmur - Respiratory Respiratory: No: Clear bilaterally (wheezing) - Abdomen Abdomen: Soft, Non tender - Derm Derm: Normal color, Warm and dry - Extremities Extremities: No deformity, No tenderness to palpate, No edema, No calf tenderness / cord Results - Vitals Vitals: Vital Signs - 24 hr 03/23/17 03/23/17 03/23/17 12:40 12:55 14:00 Temperature 36.3 C L Heart Rate 85 78 Respiratory 20 20 Rate Blood Pressure 173/140 H 150/71 H 136/81 H O2 Saturation 96 98 03/23/17 14:45 Temperature Heart Rate 78 Respiratory 20 Rate Blood Pressure 138/80 H O2 Saturation 97 Oxygen O2 Source [With Activity] Room air O2 Source [Without Activity] Room air O2 Source Room air PD MEDICAL DECISION MAKING - ED course Complexity details: reviewed results, considered differential (feeling better on arrival and given another neb here. ), d/w patient Departure - Departure Disposition: 01 Home, Self Care Clinical Impression: Dyspnea Acute asthma exacerbation Qualifiers: Asthma severity: moderate Asthma persistence: persistent Qualified Code(s): J45.41 - Moderate persistent asthma with (acute) exacerbation Condition: Stable Record reviewed to determine appropriate education?: Yes Instructions: ED COPD Flare Follow-Up: Jaleel Souza MD [Primary Care Provider] - Prescriptions: Albuterol Sulf [Ventolin Hfa Inhaler] 1 - 2 puffs INH Q4HR PRN #1 inhaler PRN Reason: Shortness Of Air/Wheezing Comments: Continue usual medications and nebulizer treatments. Recheck if worsening symptoms over the next few days and return if worse. Discharge Date/Time: 03/23/17 15:10
[2017-03-23] MEDS ORDERED: ACETAMINOPHEN/CODEINE 300 MG/30 MG TABLET PO STA (13:58)
[2017-03-23] MEDS ORDERED: DEXAMETHASONE 10 MG/ML VIAL PO STA (13:58)
[2017-03-23] MEDS ORDERED: IPRATROPIUM/ALBUTEROL 3 ML NEB INH STA (13:58)
[2017-03-23 18:23] VITALS: BP 138/80
== END 2017-03-23 15:10 | disposition home or self-care (01) ==
LOC: EDUNIT# → ED 12:40
DX: J45.41 Moderate persistent asthma with (acute) exacerbation (principal); I50.9 Heart failure, unspecified; F03.90 Unspecified dementia, unspecified severity, without behavioral disturbance, psychotic disturbance, mood disturbance, and anxiety; G62.9 Polyneuropathy, unspecified
CPT/HCPCS: 94640; 99283; A9270; J7620

== ENCOUNTER 2017-04-04 17:53 | Outpatient (CLI) | payer MEDICARE, OTHER | END 2017-04-04 17:54 | disposition critical access hospital (66) | LOC: EMS 17:53 | PROVIDERS: ATTEND Surgery | DX: R06.00 Dyspnea, unspecified (principal); R50.9 Fever, unspecified | CPT/HCPCS: A0425; A0427 ==

== ENCOUNTER 2017-04-04 18:12 | Emergency (ER) | payer MEDICARE, OTHER ==
[2017-04-04] MEDS ORDERED: methylPREDNISolone SUCCINATE 125 MG/2 ML VIAL IVP STA (18:19)
[2017-04-04] MEDS ORDERED: ALBUTEROL NEB 2.5 MG/3 ML INH STA ×2 (18:19→18:48)
--- NOTE | 2017-04-04 18:21 | ED Physician Documentation ---
PD HPI DYSPNEA - Stated complaint Stated Complaint: SOA - Chief complaint Chief Complaint: Resp - History obtained from History obtained from: Patient, EMS - History of Present Illness Timing - onset: Other (She has a long-standing history of asthma and it acted up today. She was quite winded. She is now better after a DuoNeb in route. She is maintained on prednisone at 20 mg a day.) Review of Systems Constitutional: denies: Fever, Chills Cardiac: denies: Chest pain / pressure, Palpitations, Pedal edema, Calf pain Respiratory: reports: Dyspnea, Cough, Wheezing. 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 HEENT: Tonsil/Adenoidectomy - Present Medications Home Medications: Ambulatory Orders Medication Instructions Recorded Confirmed Ipratropium [Atrovent] 0.5 mg INH TID PRN 06/21/16 03/23/17 Nitroglycerin [Nitrostat] 0.3 mg SL Q5M PRN 06/21/16 03/23/17 predniSONE [Prednisone] 10 mg PO DAILY 06/21/16 03/23/17 Butalb/Acetaminophen/Caffeine 1 tab PO QID 01/06/17 03/23/17 [Fioricet 50-300-40 mg Capsule] Magnesium Hydroxide [Milk of 30 ml PO DAILY PRN 01/06/17 03/23/17 Magnesia] Albuterol Sulf [Ventolin Hfa 1 - 2 puffs INH Q4HR PRN #1 inhaler 03/23/17 Inhaler] Albuterol Sulfate [Proventil Hfa 2 puffs IH Q6HR PRN 03/23/17 03/23/17 Inhaler] predniSONE [Deltasone] 60 mg PO DAILY 5 Days tablet 04/04/17 - Allergies Allergies/Adverse Reactions: Allergies Allergy/AdvReac Type Severity Reaction Status Date / Time aspirin Allergy Unknown unknown Verified 03/23/17 12:50 levofloxacin [From Levaquin] Allergy Unknown unknown Verified 03/23/17 12:50 NSAIDS (Non-Steroidal Allergy Unknown Unknown Verified 03/23/17 12:50 Anti-Inflamma Penicillins Allergy Unknown unknown Verified 03/23/17 12:50 black pepper Allergy Unknown Verified 03/23/17 12:50 - Social History Does the pt smoke?: No Smoking Status: Never smoker Does the pt drink ETOH?: No Does the pt have substance abuse?: No - Immunizations Immunizations are current?: Yes Immunizations: TDAP >10years/unknown - POLST Patient has POLST: Yes PD ED PE NORMAL - Vitals Vital signs reviewed: Yes - General General: Alert and oriented X 3, No acute distress, Other (Very hard of hearing) - Cardiac Cardiac: RRR, No murmur - Respiratory Respiratory: Other (Slightly winded, pursed lip breathing, increased I:E ratio and wheezy throughout with mediocre air motion.) - Abdomen Abdomen: Non tender - Extremities Extremities: No edema, No calf tenderness / cord - Neuro Neuro: Alert and oriented X 3, Normal speech - Psych Psych: Normal mood, Normal affect Results - Vitals Vitals: Vital Signs - 24 hr 04/04/17 04/04/17 04/04/17 18:13 18:27 19:05 Temperature 36.4 C L Heart Rate 92 89 74 Respiratory 24 14 20 Rate Blood Pressure 147/122 H O2 Saturation 99 Oxygen O2 Source [With Activity] Room air O2 Source [Without Activity] Room air O2 Source Room air PD MEDICAL DECISION MAKING - ED course ED course: 89-year-old woman presents with apparent asthma exacerbation. She really feels better here but is still quite wheezy and this was followed with 2 more nebs and an increase in her steroids. She felt back to baseline to the after that still had persistent wheezing but declined an offer for admission. Departure - Departure Disposition: Home, Self Care Clinical Impression: Asthma Condition: Good Record reviewed to determine appropriate education?: Yes Instructions: ED Reactive Airway Disease Prescriptions: predniSONE [Deltasone] 60 mg PO DAILY 5 Days tablet Comments: Return if worse, 5 days of prednisone at total of 80 mg a day, so 60 mg as the prescription today plus or 20 mg baseline. Follow-up with your physician Saturday for recheck.
[2017-04-04 19:28] VITALS: BP 130/93
[2017-04-04] MEDS ORDERED: ACETAMINOPHEN 325 MG TABLET PO STA (19:49)
== END 2017-04-04 19:53 | disposition home or self-care (01) ==
LOC: EDUNIT# → SUPCPDRO 18:12 → ED 18:12
DX: J45.909 Unspecified asthma, uncomplicated (principal); F03.90 Unspecified dementia, unspecified severity, without behavioral disturbance, psychotic disturbance, mood disturbance, and anxiety; G62.9 Polyneuropathy, unspecified; Z79.51 Long term (current) use of inhaled steroids; Z79.52 Long term (current) use of systemic steroids
CPT/HCPCS: 94640; 96374; 99283; 99284; A9270; J7613

== ENCOUNTER 2017-04-05 06:48 | Outpatient (CLI) | payer MEDICARE, OTHER | END 2017-04-05 06:49 | disposition critical access hospital (66) | LOC: EMS 06:48 | PROVIDERS: ATTEND Surgery | DX: R06.00 Dyspnea, unspecified (principal) | CPT/HCPCS: A0425; A0427 ==

== ENCOUNTER 2017-04-05 07:27 | Inpatient (IN) | payer MEDICARE, OTHER ==
[2017-04-05] MEDS ORDERED: ACETAMINOPHEN 325 MG TABLET PO STA (07:33)
[2017-04-05] MEDS ORDERED: DEXAMETHASONE 10 MG/ML VIAL IVP STA (07:33)
[2017-04-05] MEDS ORDERED: IPRATROPIUM/ALBUTEROL 3 ML NEB INH STA (07:34)
--- NOTE | 2017-04-05 07:41 | ED Physician Documentation ---
PD HPI DYSPNEA - Stated complaint Stated Complaint: SOA, FEVER - History obtained from History obtained from: Patient, EMS - History of Present Illness Timing - onset: How many days ago (few) Timing - onset during: Rest Timing - details: Still present Associated symptoms: Fever, Cough, Wheezing, Chest pain / discomfort Similar symptoms before: Diagnosis (Asthma) Recently seen: Emergency Dept (She was seen here yesterday with similar presentation, but improved after administration of DuoNeb treatments and steroid.) - Treatment prior to arrival Treatment prior to arrival: Medics administered DuoNeb treatment. - Additional information Additional information: The patient is an 89-year-old female with history of asthma, who presents via ambulance with progressive dyspnea. Medics noted fever of 101.5. She has had cough and wheezing. Medics administered DuoNeb treatment while enroute. The patient was seen here yesterday with similar presentation. She improved after administration of several DuoNeb treatments and steroid therapy. Her wheezing did not clear prior to discharge yesterday, but the patient declined admission to the hospital. Her prednisone dose was increased from 20 mg daily to 80 mg when discharged yesterday. Review of Systems Constitutional: reports: Fever Nose: denies: Congestion Cardiac: reports: Chest pain / pressure Respiratory: reports: Dyspnea, Cough GI: denies: Abdominal Pain, Nausea, Vomiting : denies: Dysuria Skin: denies: Rash Musculoskeletal: reports: Extremity swelling (Chronic lymphedema LLE) Neurologic: denies: Focal weakness, Numbness PD PAST MEDICAL HISTORY - Past Medical History Cardiovascular: Congestive heart failure Respiratory: Asthma Neuro: Dementia, Peripheral neuropathy Endocrine/Autoimmune: None GI: Chronic constipation : None HEENT: None Psych: None Musculoskeletal: Chronic back pain Derm: None - Past Surgical History Past Surgical History: Yes /[employer]: Tubal ligation HEENT: Tonsil/Adenoidectomy - Present Medications Home Medications: Ambulatory Orders Medication Instructions Recorded Confirmed Ipratropium [Atrovent] 0.5 mg INH TID PRN 06/21/16 04/05/17 Nitroglycerin [Nitrostat] 0.3 mg SL Q5M PRN 06/21/16 04/05/17 predniSONE [Prednisone] 10 mg PO DAILY 06/21/16 04/05/17 Magnesium Hydroxide [Milk of 30 ml PO DAILY PRN 01/06/17 04/05/17 Magnesia] Albuterol Sulf [Ventolin Hfa 1 - 2 puffs INH Q4HR PRN #1 inhaler 03/23/17 Inhaler] Butalb/Acetaminophen/Caffeine 1 each PO Q6H PRN 04/05/17 04/05/17 [[id number] 50-300-40] Oseltamivir Phosphate 75 mg PO DAILY 04/05/17 04/05/17 - Allergies Allergies/Adverse Reactions: Allergies Allergy/AdvReac Type Severity Reaction Status Date / Time aspirin Allergy Unknown unknown Verified 03/23/17 12:50 levofloxacin [From Levaquin] Allergy Unknown unknown Verified 03/23/17 12:50 NSAIDS (Non-Steroidal Allergy Unknown Unknown Verified 03/23/17 12:50 Anti-Inflamma Penicillins Allergy Unknown unknown Verified 03/23/17 12:50 black pepper Allergy Unknown Verified 03/23/17 12:50 - Social History Does the pt smoke?: No Smoking Status: Never smoker Does the pt drink ETOH?: No Does the pt have substance abuse?: No - Immunizations Immunizations are current?: Yes Immunizations: TDAP >10years/unknown - POLST Patient has POLST: Yes PD ED PE NORMAL - Vitals Vital signs reviewed: Yes (Tachypneic and tachycardic.) - General General: Alert and oriented X 3, Other (Extreme hearing impairment.) - HEENT HEENT: Atraumatic, EOMI, Moist mucous membranes, Pharynx benign - Neck Neck: No adenopathy, No JVD - Cardiac Cardiac: No murmur, Other (Rapid rate, regular rhythm.) - Respiratory Respiratory: Other (Obvious respiratory distress, with pursed lip breathing. Diffuse expiratory wheezing, with prolonged expiratory phase.) - Abdomen Abdomen: Soft, Non tender - Back Back: No CVA TTP - Derm Derm: No rash - Extremities Extremities: No calf tenderness / cord, Other (Lymphedema left lower extremity.) - Neuro Neuro: No motor deficit, No sensory deficit, Other (Communication is very difficult due to the patient's extreme hearing impairment, compounded by her respiratory distress.) Eye Opening: Spontaneous Motor: Obeys Commands Verbal: Oriented GCS Score: 15 Results - Vitals Vitals: Vital Signs - 24 hr 04/05/17 04/05/17 04/05/17 07:32 08:05 08:30 Temperature 36.0 C L Heart Rate 116 H 112 H 118 H Respiratory 28 H 19 22 Rate Blood Pressure 155/117 H 137/72 H O2 Saturation 95 96 Oxygen O2 Source [With Activity] Room air O2 Source [Without Activity] Room air O2 Source Nasal cannula - EKG (time done) 07:36 Rate: Rate (enter#) (114) Rhythm: Sinus tachycardia, LAE [place]: Anterior hemiblock Intervals: Normal IA Compare to prior EKG: Changed from prior EKG (Sinus tachycardia is new, but QRS morphology is unchanged compared to 01/06/2017.) Computer interpretation: Agree with computer - Labs Labs: Laboratory Tests 04/05/17 04/05/17 04/05/17 08:01 08:01 08:01 WBC 4.3 L RBC 3.57 L Hgb 10.7 L Hct 32.7 L MCV 91.6 MCH 30.0 MCHC 32.7 RDW 15.7 H Plt Count 160 MPV 8.3 Neut # 3.7 Lymph # 0.5 L [place] # 0.1 Eos # 0.0 Baso # 0.0 Absolute Nucleated RBC 0.00 Nucleated RBC % 0.1 Sodium 129 L Potassium 4.1 Chloride 96 L Carbon Dioxide 21 Anion Gap 12.0 BUN 25 H Creatinine 0.9 Estimated GFR (MDRD) 59 L Glucose 107 H Lactic Acid Calcium 8.7 Total Bilirubin 0.5 AST 34 ALT 26 Alkaline Phosphatase 73 Troponin I < 0.04 B-Natriuretic Peptide Total Protein 6.2 L Albumin 3.6 Globulin 2.6 Albumin/Globulin Ratio 1.4 Lipase 25 Urine Color Urine Clarity Urine pH Ur Specific [place] Urine Protein Urine Glucose (UA) Urine Ketones Urine Occult Blood Urine Nitrite Urine Bilirubin Urine Urobilinogen Ur Leukocyte Esterase Urine RBC Urine WBC Ur Squamous Epith Cells Urine Bacteria Ur Microscopic Review Urine Culture Comments Influenza A (Rapid) Influenza B (Rapid) Influenza Types A,B Ag 04/05/17 04/05/17 04/05/17 08:01 08:01 08:08 WBC RBC Hgb Hct MCV MCH MCHC RDW Plt Count MPV Neut # Lymph # [place] # Eos # Baso # Absolute Nucleated RBC Nucleated RBC % Sodium Potassium Chloride Carbon Dioxide Anion Gap BUN Creatinine Estimated GFR (MDRD) Glucose Lactic Acid 1.0 Calcium Total Bilirubin AST ALT Alkaline Phosphatase Troponin I B-Natriuretic Peptide 114 H Total Protein Albumin Globulin Albumin/Globulin Ratio Lipase Urine Color Urine Clarity Urine pH Ur Specific [place] Urine Protein Urine Glucose (UA) Urine Ketones Urine Occult Blood Urine Nitrite Urine Bilirubin Urine Urobilinogen Ur Leukocyte Esterase Urine RBC Urine WBC Ur Squamous Epith Cells Urine Bacteria Ur Microscopic Review Urine Culture Comments Influenza A (Rapid) Negative Influenza B (Rapid) Negative Influenza Types A,B Ag - 04/05/17 08:45 WBC RBC Hgb Hct MCV MCH MCHC RDW Plt Count MPV Neut # Lymph # [place] # Eos # Baso # Absolute Nucleated RBC Nucleated RBC % Sodium Potassium Chloride Carbon Dioxide Anion Gap BUN Creatinine Estimated GFR (MDRD) Glucose Lactic Acid Calcium Total Bilirubin AST ALT Alkaline Phosphatase Troponin I B-Natriuretic Peptide Total Protein Albumin Globulin Albumin/Globulin Ratio Lipase Urine Color YELLOW Urine Clarity HAZY Urine pH 6.5 Ur Specific [place] 1.015 Urine Protein NEGATIVE Urine Glucose (UA) NEGATIVE Urine Ketones NEGATIVE Urine Occult Blood MODERATE H Urine Nitrite NEGATIVE Urine Bilirubin NEGATIVE Urine Urobilinogen 0.2 (NORMAL) Ur Leukocyte Esterase NEGATIVE Urine RBC 11-25 H Urine WBC 0-3 Ur Squamous Epith Cells FEW Squamous Urine Bacteria Moderate H Ur Microscopic Review INDICATED Urine Culture Comments INDICATED Influenza A (Rapid) Influenza B (Rapid) Influenza Types A,B Ag - Rads (name of study) CXR Radiology: Prelim report reviewed, EMP read contemporaneously, See rad report ( No consolidation evident.) PD MEDICAL DECISION MAKING - ED course Complexity details: reviewed old records, reviewed results, re-evaluated patient , considered differential, d/w patient, d/w [facility] consultant ED course: The patient's presentation is most consistent with acute exacerbation of COPD. This is her second emergency department visit in 2 days with similar presentation. Her symptoms today occurred despite increase of her prednisone therapy after being seen here yesterday. Her chest x-ray does not reveal evidence of pneumonia, and the patient's white count is normal at 4.3. She was noted to have a low-grade fever prior to arrival. Urinalysis is negative. She does not appear septic. Her presentation does not suggest congestive heart failure, and her BNP is essentially normal. Treatment in the emergency department included administration of DuoNeb nebulizer, dexamethasone 10 mg IV, and Tylenol 650 mg orally. I discussed her condition with Dr. Ren, the hospitalist, who will admit her to the hospital for further evaluation and treatment. Departure - Departure Disposition: [facility] DC/[facility] Clinical Impression: COPD exacerbation Condition: Fair Discharge Date/Time: 04/05/17 11:01
--- NOTE | 2017-04-05 08:23 | XRAY Report ---
EXAM: CHEST RADIOGRAPHY EXAM DATE: 04/05/2017 08:07 AM. CLINICAL HISTORY: Dyspnea for 2 days, with low O2 saturation. COMPARISON: 03/08/2017. TECHNIQUE: 1 view. FINDINGS: Lungs/Pleura: No focal opacities evident. No pleural effusion. No pneumothorax. Lateral right mid to lower chest skin fold. Mediastinum: Atherosclerotic aortic calcifications. Tortuous aorta. Other: Diffuse osteopenia. Convex left thoracolumbar scoliosis. Lateral right 10th rib fracture was more apparent on prior exam. IMPRESSION: No consolidation evident. [facility] Referring Provider Line: [phone] SITE ID: [id number]
[2017-04-05 08:30] LABS: BASOPHILS % (AUTO) 0.4 %; HGB - HEMOGLOBIN 10.7 g/dL (12.0-16.0); LYMPHOCYTES # (AUTO) 0.5 10^3/uL (1.5-3.5); LYMPHOCYTES % (AUTO) 10.9 %; MEAN CORPUSCULAR HGB CONC 32.7 g/dL (32.0-36.0); MEAN CORPUSCULAR VOLUME 91.6 fL (81.0-99.0); MEAN PLATELET VOLUME 8.3 fL (7.9-10.8); MONOCYTES # (AUTO) 0.1 10^3/uL (0.0-1.0); MONOCYTES % (AUTO) 2.6 %; NEUTROPHILS # (AUTO) 3.7 10^3/uL (1.5-6.6); NEUTROPHILS % (AUTO) 86.1 %; PLT - PLATELET COUNT 160 10^3/uL (130-450); RED BLOOD COUNT 3.57 10^6/uL (4.20-5.40); RED CELL DISTRIBUTION WIDTH 15.7 % (12.0-15.0); WHITE BLOOD COUNT 4.3 x10^3/uL (4.8-10.8)
[2017-04-05 08:40] LABS: ALBUMIN 3.6 g/dL (3.2-5.5); ALBUMIN/GLOBULIN RATIO 1.4 (1.0-2.2); BILIRUBIN,TOTAL 0.5 mg/dL (0.2-1.0); CALCIUM 8.7 mg/dL (8.5-10.3); CREATININE 0.9 mg/dL (0.4-1.0); TOTAL PROTEIN 6.2 g/dL (6.7-8.2)
[2017-04-05 08:53] LABS: BILIRUBIN,URINE NEGATIVE (NEGATIVE); CLARITY,URINE HAZY (CLEAR); GLUCOSE, URINE (UA) NEGATIVE (NEGATIVE); KETONES,URINE (UA) NEGATIVE (NEGATIVE); LEUKOCYTE ESTERASE, URINE NEGATIVE (NEGATIVE); NITRITE,URINE NEGATIVE (NEGATIVE); OCCULT BLOOD,URINE MODERATE (NEGATIVE); PH,URINE 6.5 PH (5.0-7.5); PROTEIN,URINE NEGATIVE (NEGATIVE); UROBILINOGEN,URINE 0.2 (NORMAL) E.U./dL (NORMAL)
[2017-04-05 08:59] LABS: BACTERIA,URINE Moderate /HPF (None Seen); SQUAMOUS EPITHELIAL CELL,UR FEW Squamous (<= Few)
[2017-04-05] MEDS ORDERED: ACETAMINOPHEN 325 MG TABLET PO PRN (09:02)
[2017-04-05] MEDS ORDERED: SODIUM CHLORIDE FLUSH 0.9% 10 ML SYRINGE IVP PRN (09:02)
[2017-04-05] MEDS ORDERED: SODIUM CHLORIDE 0.9% 1,000 ML IV SCH (10:00)
--- NOTE | 2017-04-05 10:28 | HISTORY & PHYSICAL EXAMINATION ---
Chief Complaint - Chief Complaint Chief Complaint: increased SOB History of Present Illness - Admitted From Admitted From:: ED - History Obtained From Records Reviewed: yes History obtained from: chart review, patient Exam Limitations: none - History of Present Illness HPI Comment/Other: Yasmin Oneill is an ill-appearing elderly 89-year old white female who is profoundly hard of hearing and has a past medical history of asthma, COPD, CHF, dementia, peripheral neuropathy, chronic constipation, and chronic back pain. She resides at [facility], but lived most of her life in [place], [place]. The patient was seen in our ED yesterday with similar symptoms including, progressive SOB, fever, cough, and wheezing. She had minimal improvement, but refused the admission so she was sent on her way with an increased steroid dose. Today she arrived via ambulance with a temp of 101.5, dyspnea on exertion , cough, and wheezing. Once in the ED, a chest x-ray was obtain which did not indicate pneumonia. She agreed to admission, so brought to the nursing floor where she again, was resistant to cares and "grumpy" about the whole situation. She was prescribed morphine IV, which improved ease of breathing. 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 Living arrangement: Assisted living Social History Notes: Patient resides at [facility]. She has lived her whole life in [place], [place] or [place] with her of many years. She states that her "just ", a few months ago. Soon after that she lost her dog when the dog was coming up the stairs, fell, broke it's neck, and . She has since sold all of her [id number], her home and moved to [place]. 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 She denies tobacco, alcohol or illicit drug use. - Substance History Use: Uses substance without health or social issues: NONE Abuse: Recurrent use of substance despite neg consequences: NONE Dependence: Experiences withdrawal or developed tolerances: NONE - POLST Patient has POLST: No POLST Status: DNR Meds/Allgy - Home Medications Home Medications: Ambulatory Orders Medication Instructions Recorded Confirmed Ipratropium [Atrovent] 0.5 mg INH TID PRN 06/21/16 04/05/17 Nitroglycerin [Nitrostat] 0.3 mg SL Q5M PRN 06/21/16 04/05/17 predniSONE [Prednisone] 10 mg PO DAILY 06/21/16 04/05/17 Magnesium Hydroxide [Milk of 30 ml PO DAILY PRN 01/06/17 04/05/17 Magnesia] Albuterol Sulf [Ventolin Hfa 1 - 2 puffs INH Q4HR PRN #1 inhaler 03/23/17 Inhaler] Butalb/Acetaminophen/Caffeine 1 each PO Q6H PRN 04/05/17 04/05/17 [Jezwyh-[id number]-Qcdk 50-300-40] Oseltamivir Phosphate 75 mg PO DAILY 04/05/17 04/05/17 - Allergies Allergies/Adverse Reactions: Allergies Allergy/AdvReac Type Severity Reaction Status Date / Time aspirin Allergy Unknown unknown Verified 03/23/17 12:50 levofloxacin [From Levaquin] Allergy Unknown unknown Verified 03/23/17 12:50 NSAIDS (Non-Steroidal Allergy Unknown Unknown Verified 03/23/17 12:50 Anti-Inflamma Penicillins Allergy Unknown unknown Verified 03/23/17 12:50 black pepper Allergy Unknown Verified 03/23/17 12:50 Review of Systems - Constitutional Constitutional: reports: Fatigue, Fever, Chills, Weakness, Poor appetite - Eyes Eyes: reports: Vision loss - Ears, Nose & Throat Ears, Nose & Throat: reports: Hearing loss, Hearing aids, Dental decay - Cardiovascular Cariovascular: reports: Edema (left leg 3xs larger than the right.), Lightheadedness - Respiratory Respiratory: reports: Wheezing, Orthopnea, SOB at rest, SOB with exertion - Gastrointestinal Gastrointestinal: reports: Constipation, Reflux/heartburn, Poor appetite - Genitourinary Genitourinary: reports: Dysuria, Incontinence, Nocturia - Musculoskeletal Musculoskeletal: reports: Limited range of motion, Joint swelling - Integumentary Integumentary: reports: Dryness - Neurological Neurological: reports: General weakness - Psychiatric Psychiatric: reports: Anxiety - All Other Systems All Other Systems: reports: Reviewed and negative Exam - Vital Signs Reviewed Vital Signs: Yes Vital Signs: Vital Signs x48h Pulse Resp BP Pulse Ox 04/05/17 09:20 115 H 18 117/71 98 - Physical Exam General Appearance: positive: Alert, Moderate distress, Anxious Eyes Bilateral: positive: Normal inspection ENT: positive: ENT inspection nml, Pharynx nml, Dry mucous membranes Neck: positive: Nml inspection, Thyroid nml, Trachea midline, Stiff neck Respiratory: positive: Chest non-tender, Wheezes, Rales Cardiovascular: positive: Irregularly irregular, Tachycardia, Systolic murmur, Decreased pulse(s) Peripheral Pulses: positive: 1+ Abdomen: positive: Non-tender, Nml bowel sounds, Other (rounded, soft) Back: positive: Nml inspection Skin: positive: No rash, Warm, Dry Extremities: positive: Non-tender, Pedal edema, Joint swelling Neurologic/Psychiatric: positive: Disoriented to time, Weakness, Sensory loss, Depressed mood/affect, Other ([place], somewhat difficult to evaluate.) Reflexes: Bicep (R): 2+, Bicep (L): 2+ Conclusion/Plan - Problem List (1) Acute exacerbation of COPD with asthma Conclusion/Plan: Patient has a long standing history of lung disease, but denies smoking or second hand exposure. A chest x-ray was completed which showed no evidence of pneumonia. Plan: Xopenex nebulizers, IV steroids and monitor oxygen saturation. (2) Urinary tract infection Conclusion/Plan: A UA was obtained in the ED and shows a UTI. It showed + occult, moderate bacteria, and a urine culture is pending. Plan: Start Rocephin. Qualifiers: Urinary tract infection type: acute cystitis Hematuria presence: without hematuria Qualified Code(s): N30.00 - Acute cystitis without hematuria (3) Bilateral hearing loss Conclusion/Plan: Patient has profound hearing loss. After arriving to the nursing floor, her hearing aide batteries were changed and cleaned. Plan: Continue hearing aide use and speak clearly and in close proximity. (4) Altered mental status Conclusion/Plan: Patient is not obviously confused, but says things such as, "I need cataract surgery so I can drive again". She is likely more confused, has baseline dementia, and the likely cause being acute UTI. Plan: Continue nursing care and ensure familiar items are within reach. - Lab Results Lab results reviewed: Yes Fish Bones: 04/05/17 08:01 04/05/17 08:01 - Diagnostic Imaging Results Diagnostic Imaging Results: positive: Prelim report reviewed, Final report reviewed Diagnostic Imaging Results Comments: FINDINGS: Lungs/Pleura: No focal opacities evident. No pleural effusion. No pneumothorax. Lateral right mid to lower chest skin fold. Mediastinum: Atherosclerotic aortic calcifications. Tortuous aorta. Other: Diffuse osteopenia. Convex left thoracolumbar scoliosis. Lateral right 10th rib fracture was more apparent on prior exam. IMPRESSION: No consolidation evident. - EKG Results EKG Interpreted Independently: Yes Core Measures - Anticipated LOS I expect patient to be DC'd or transferred within 96 hours.: Yes - DVT/VTE - Prophylaxis VTE/DVT Device ordered at admit?: Yes VTE/DVT Prophylaxis med ordered at admit?: Yes - Stroke - Rehab Assessment Rehab services assessment to be ordered?: Yes - AMI - Statin at Admit Aspirin Prescribed on Admit: Yes
[2017-04-05] MEDS: LEVALBUTEROL 1.25 MG/3 ML NEB INH PRN ×3 (13:11→22:20)
[2017-04-05] MEDS ORDERED: NITROGLYCERIN SL 0.4 MG TABLET SL PRN (13:40)
[2017-04-05] MEDS ORDERED: methylPREDNISolone SUCCINATE 125 MG/2 ML VIAL IVP SCH (14:00)
[2017-04-05] MEDS ORDERED: cefTRIAXone 1 GM in SODIUM CHLORIDE 0.9% MINIBAG 100 ML IV SCH (14:00)
[2017-04-05] MEDS ORDERED: MORPHINE 2 MG/ML CARPUJECT IVP PRN (14:24)
[2017-04-05] MEDS ORDERED: LEVALBUTEROL 1.25 MG/3 ML NEB INH ONE (14:24)
[2017-04-05] MEDS ORDERED: LORazepam 2 MG/ML VIAL IVP PRN (14:25)
[2017-04-05] MEDS: SODIUM CHLORIDE FLUSH 0.9% 10 ML SYRINGE IVP SCH ×2 (14:31→22:36)
[2017-04-05] MEDS: FORMOTEROL FUMARATE NEB 20 MCG/2 ML INH SCH ×2 (14:49→18:22)
[2017-04-05 19:42] LABS: CALCIUM 8.8 mg/dL (8.5-10.3)
[2017-04-05] MEDS ORDERED: LORazepam 0.5 MG TABLET SL PRN (21:54)
[2017-04-05] MEDS: MAGNESIUM OXIDE 400 MG TABLET PO SCH (22:54)
[2017-04-06] MEDS: LEVALBUTEROL 1.25 MG/3 ML NEB INH PRN ×3 (01:15→11:24)
[2017-04-06] MEDS: MORPHINE SOL 10 MG/0.5 ML SYRINGE PO PRN ×4 (01:22→18:31)
[2017-04-06] MEDS: SODIUM CHLORIDE FLUSH 0.9% 10 ML SYRINGE IVP SCH (05:49)
[2017-04-06 05:51] LABS: ALBUMIN 3.4 g/dL (3.2-5.5); ALBUMIN/GLOBULIN RATIO 1.3 (1.0-2.2); BILIRUBIN,TOTAL 0.4 mg/dL (0.2-1.0); CALCIUM 8.7 mg/dL (8.5-10.3); CREATININE 0.9 mg/dL (0.4-1.0)
[2017-04-06 07:23] LABS: HGB - HEMOGLOBIN 10.9 g/dL (12.0-16.0); LYMPHOCYTES # (AUTO) 0.7 10^3/uL (1.5-3.5); LYMPHOCYTES % (AUTO) 7.4 %; MEAN CORPUSCULAR HEMOGLOBIN 30.8 pg (27.0-31.0); MEAN CORPUSCULAR HGB CONC 33.3 g/dL (32.0-36.0); MEAN CORPUSCULAR VOLUME 92.6 fL (81.0-99.0); MEAN PLATELET VOLUME 8.8 fL (7.9-10.8); MONOCYTES # (AUTO) 0.8 10^3/uL (0.0-1.0); MONOCYTES % (AUTO) 8.9 %; NEUTROPHILS # (AUTO) 7.6 10^3/uL (1.5-6.6); NEUTROPHILS % (AUTO) 83.7 %; PLT - PLATELET COUNT 147 10^3/uL (130-450); RED BLOOD COUNT 3.53 10^6/uL (4.20-5.40); RED CELL DISTRIBUTION WIDTH 16.1 % (12.0-15.0); WHITE BLOOD COUNT 9.1 x10^3/uL (4.8-10.8)
[2017-04-06] MEDS: FORMOTEROL FUMARATE NEB 20 MCG/2 ML INH SCH ×3 (07:40→20:00)
--- NOTE | 2017-04-06 08:31 | PROVIDER PROGRESS NOTE ---
Subjective - Prog Note Date Prog Note Date: 04/06/17 Prog Note Time: 08:31 - Subjective Pt reports feeling: Improved Subjective: Yasmin had a milena visit with her nephew and he was personally updated. She denies SOB, chest pain, N/V or a new cough. Current Medications - Current Medications Current Medications: Active Medications Acetaminophen (Tylenol) 650 mg PO Q4HR PRN PRN Reason: Pain 1 to 4 Last Admin: 04/05/17 11:38 Dose: 650 mg Enoxaparin Sodium (Lovenox) 40 mg SUBQ DAILY [facility] Famotidine (Pepcid) 20 mg PO DAILY [facility] Formoterol Fumarate (Perforomist) 20 mcg INH RTBID [facility] Last Admin: 04/06/17 07:40 Dose: 20 mcg Furosemide (Lasix Inj 40 Mg Vial) 40 mg IVP DAILY [facility] Ceftriaxone Sodium 1 gm/ (Sodium Chloride) 100 mls @ 200 mls/hr IV Q24H [facility] Last Infusion: 04/05/17 15:50 Dose: Infused Levalbuterol HCl (Xopenex) 1.25 mg INH RTQ4H PRN PRN Reason: SHORTNESS OF AIRWAY Last Admin: 04/06/17 07:40 Dose: 1.25 mg Lorazepam (Ativan Inj (Vial)) 0.5 mg IVP Q2H PRN PRN Reason: Anxiety Lorazepam (Ativan) 0.5 mg SL Q6H PRN PRN Reason: Anxiety Magnesium Oxide (Mag Ox) 400 mg PO BID [facility] Last Admin: 04/05/17 22:54 Dose: 400 mg Methylprednisolone Sodium Succinate (Solu-Medrol (125mg Vial)) 125 mg IVP TID [facility] Morphine Sulfate (Morphine (Carpuject)) 2 mg IVP Q2HR PRN PRN Reason: PAIN Last Admin: 04/05/17 14:49 Dose: 2 mg Morphine Sulfate (Roxanol) 5 mg PO Q2HR PRN PRN Reason: PAIN Last Admin: 04/06/17 01:22 Dose: 5 mg Nitroglycerin (Nitrostat) 0.4 mg SL Q5M PRN PRN Reason: Chest Pain Polyethylene Glycol (Miralax) 17 gm PO DAILY [facility] Prednisone (Deltasone) 60 mg PO DAILYWM [facility] Sodium Chloride (Normal Saline Flush 0.9%) 10 ml IVP PRN PRN PRN Reason: NEEDED PER PROVIDER ORDERS Sodium Chloride (Normal Saline Flush 0.9%) 10 ml IVP Q8HR [facility] Last Admin: 04/06/17 05:49 Dose: Not Given Ipratropium [Atrovent] 0.5 mg INH TID PRN 06/21/16 Nitroglycerin [Nitrostat] 0.3 mg SL Q5M PRN 06/21/16 predniSONE [Prednisone] 10 mg PO DAILY 06/21/16 Magnesium Hydroxide [Milk of Magnesia] 30 ml PO DAILY PRN 01/06/17 Butalb/Acetaminophen/Caffeine [Zpeudb-Zuyxoubj-Hgwg 50-300-40] 1 each PO Q6H PRN 04/05/17 Oseltamivir Phosphate 75 mg PO DAILY 04/05/17 Objective - Vital Signs/Intake & Output Reviewed Vital Signs: Yes Vital Signs: Vital Signs x48h Temp Pulse Pulse Resp BP Pulse Ox 04/06/17 07:40 84 16 04/06/17 05:24 36.4 C L 82 24 113/59 L 99 04/06/17 01:15 89 20 Intake & Output: Intake & Output 04/03/17 04/04/17 04/05/17 04/06/17 23:59 23:59 23:59 23:59 Intake Total 1530 480 Output Total 1400 750 Balance 130 -270 - Objective General Appearance: positive: No acute distress, Alert, Anxious Eyes Bilateral: positive: Normal inspection Eyes: OU Conjunctivae pale, OU Lid inflammation, OU Scleral icterus ENT: positive: ENT inspection nml, Pharynx nml, No signs of dehydration Neck: positive: Nml inspection, Thyroid nml, No JVD, Trachea midline Respiratory: positive: Chest non-tender, No respiratory distress, Wheezes, Rhonchi Cardiovascular: positive: No gallop, Irregularly irregular, Systolic murmur, Decreased pulse(s) Peripheral Pulses: 1+ Radial (R), 1+ Radial (L) Abdomen: positive: Non-tender, No organomegaly, Nml bowel sounds, No distention Back: positive: Nml inspection Skin: positive: No rash, Warm, Dry, Pallor Extremities: positive: Non-tender, Pedal edema (left lower extremity with profound edema greater than right and this is chronic) Neurologic/Psychiatric: positive: Disoriented to time, Weakness, Sensory loss, Depressed mood/affect, Other (matter of fact- statements.) Reflexes: Bicep (R): 2+, Bicep (L): 2+ - Lab Results Fish Bones: 04/07/17 05:00 04/07/17 05:00 Other Labs: Lab Results x24hrs 04/06/17 04/06/17 04/06/17 Range/Units 06:45 06:45 05:20 WBC 9.1 (4.8-10.8) x10^3/uL RBC 3.53 L (4.20-5.40) 10^6/uL Hgb 10.9 L (12.0-16.0) g/dL Hct 32.6 L (37.0-47.0) % MCV 92.6 (81.0-99.0) fL MCH 30.8 (27.0-31.0) pg MCHC 33.3 (32.0-36.0) g/dL RDW 16.1 H (12.0-15.0) % Plt Count 147 (130-450) 10^3/uL MPV 8.8 (7.9-10.8) fL Neut # 7.6 H (1.5-6.6) 10^3/uL Lymph # 0.7 L (1.5-3.5) 10^3/uL Garfield # 0.8 (0.0-1.0) 10^3/uL Eos # 0.0 (0.0-0.7) 10^3/uL Baso # 0.0 (0.0-0.1) 10^3/uL Absolute Nucleated RBC 0.00 x10^3/uL Nucleated RBC % 0.0 /100WBC Sodium (135-145) mmol/L Potassium (3.5-5.0) mmol/L Chloride (101-111) mmol/L Carbon Dioxide (21-32) mmol/L Anion Gap (6-13) BUN (6-20) mg/dL Creatinine (0.4-1.0) mg/dL Estimated GFR (MDRD) (>89) Glucose (70-100) mg/dL Lactic Acid (0.5-2.2) mmol/L Calcium (8.5-10.3) mg/dL Phosphorus (2.5-4.6) mg/dL Magnesium (1.7-2.8) mg/dL Total Bilirubin (0.2-1.0) mg/dL AST (10-42) IU/L ALT (10-60) IU/L Alkaline Phosphatase (42-121) IU/L Troponin I 0.51 H* (<0.49) ng/mL B-Natriuretic Peptide 535 H (5-100) pg/mL Total Protein (6.7-8.2) g/dL Albumin (3.2-5.5) g/dL Globulin (2.1-4.2) g/dL Albumin/Globulin Ratio (1.0-2.2) 04/06/17 04/05/17 04/05/17 Range/Units 05:20 19:15 19:15 WBC (4.8-10.8) x10^3/uL RBC (4.20-5.40) 10^6/uL Hgb (12.0-16.0) g/dL Hct (37.0-47.0) % MCV (81.0-99.0) fL MCH (27.0-31.0) pg MCHC (32.0-36.0) g/dL RDW (12.0-15.0) % Plt Count (130-450) 10^3/uL MPV (7.9-10.8) fL Neut # (1.5-6.6) 10^3/uL Lymph # (1.5-3.5) 10^3/uL Garfield # (0.0-1.0) 10^3/uL Eos # (0.0-0.7) 10^3/uL Baso # (0.0-0.1) 10^3/uL Absolute Nucleated RBC x10^3/uL Nucleated RBC % /100WBC Sodium 133 L (135-145) mmol/L Potassium 4.1 (3.5-5.0) mmol/L Chloride 100 L (101-111) mmol/L Carbon Dioxide 22 (21-32) mmol/L Anion Gap 11.0 (6-13) BUN 27 H (6-20) mg/dL Creatinine 0.9 (0.4-1.0) mg/dL Estimated GFR (MDRD) 59 L (>89) Glucose 96 (70-100) mg/dL Lactic Acid 1.7 (0.5-2.2) mmol/L Calcium 8.7 (8.5-10.3) mg/dL Phosphorus 3.4 (2.5-4.6) mg/dL Magnesium (1.7-2.8) mg/dL Total Bilirubin 0.4 (0.2-1.0) mg/dL AST 40 (10-42) IU/L ALT 29 (10-60) IU/L Alkaline Phosphatase 66 (42-121) IU/L Troponin I (<0.49) ng/mL B-Natriuretic Peptide (5-100) pg/mL Total Protein 6.0 L (6.7-8.2) g/dL Albumin 3.4 (3.2-5.5) g/dL Globulin 2.6 (2.1-4.2) g/dL Albumin/Globulin Ratio 1.3 (1.0-2.2) 04/05/17 04/05/17 04/05/17 Range/Units 19:15 19:15 19:15 WBC (4.8-10.8) x10^3/uL RBC (4.20-5.40) 10^6/uL Hgb (12.0-16.0) g/dL Hct (37.0-47.0) % MCV (81.0-99.0) fL MCH (27.0-31.0) pg MCHC (32.0-36.0) g/dL RDW (12.0-15.0) % Plt Count (130-450) 10^3/uL MPV (7.9-10.8) fL Neut # (1.5-6.6) 10^3/uL Lymph # (1.5-3.5) 10^3/uL Garfield # (0.0-1.0) 10^3/uL Eos # (0.0-0.7) 10^3/uL Baso # (0.0-0.1) 10^3/uL Absolute Nucleated RBC x10^3/uL Nucleated RBC % /100WBC Sodium 129 L (135-145) mmol/L Potassium 4.1 (3.5-5.0) mmol/L Chloride 95 L (101-111) mmol/L Carbon Dioxide 21 (21-32) mmol/L Anion Gap 13.0 (6-13) BUN 25 H (6-20) mg/dL Creatinine 1.0 (0.4-1.0) mg/dL Estimated GFR (MDRD) 52 L (>89) Glucose 155 H (70-100) mg/dL Lactic Acid (0.5-2.2) mmol/L Calcium 8.8 (8.5-10.3) mg/dL Phosphorus (2.5-4.6) mg/dL Magnesium 1.8 (1.7-2.8) mg/dL Total Bilirubin (0.2-1.0) mg/dL AST (10-42) IU/L ALT (10-60) IU/L Alkaline Phosphatase (42-121) IU/L Troponin I 0.41 (<0.49) ng/mL B-Natriuretic Peptide (5-100) pg/mL Total Protein (6.7-8.2) g/dL Albumin (3.2-5.5) g/dL Globulin (2.1-4.2) g/dL Albumin/Globulin Ratio (1.0-2.2) - Diagnostic Imaging Diagnostic Imaging Results: positive: Final report reviewed Assessment/Plan - Problem List (1) Acute exacerbation of COPD with asthma Impression: Patient has a long standing history of lung disease, but denies smoking or second hand exposure. A chest x-ray was completed which showed no evidence of pneumonia. According to her niece, Brittany, she has always had asthma as long as she has known. Plan: Xopenex nebulizers, IV steroids, that have now been changed to PO due to lack of IV access and patient refusal, and monitor oxygen saturation. (2) Urinary tract infection Impression: A urine sample was obtained in the ED on 04/05/17 and is growing out E. coli with sensitivities pending. Patient denies dysuria, hematuria or confusion. Plan: Continue Cipro PO and wait for sensitivities. Qualifiers: Urinary tract infection type: acute cystitis Hematuria presence: without hematuria Qualified Code(s): N30.00 - Acute cystitis without hematuria (3) Bilateral hearing loss Impression: Patient has profound hearing loss. After arriving to the nursing floor, her hearing aide batteries were changed and cleaned. Plan: Continue hearing aide use and speak clearly and in close proximity. (4) Altered mental status Impression: Patient is not obviously confused, but says things such as, "I need cataract surgery so I can drive again". She is likely more confused, has baseline dementia, and the likely cause being acute UTI. Plan: Continue nursing care and ensure familiar items are within reach. (5) Other forms of dyspnea Impression: Patient at times, refuses oxygen use while ambulating and becomes quickly irritated with "the fuss". Patient displays a mild with increased efforts of breathing when traveling back to her bed or chair after being in the bathroom. Plan: Encourage oxygen use, and monitor vital signs. Fall precautions.
[2017-04-06] MEDS: ENOXAPARIN 40 MG/0.4 ML SYRINGE SUBQ SCH (08:37)
[2017-04-06] MEDS: MAGNESIUM OXIDE 400 MG TABLET PO SCH ×2 (08:37→21:08)
[2017-04-06] MEDS: POLYETHYLENE GLYCOL 3350 17 GM PACKET PO SCH (08:38)
[2017-04-06] MEDS: FAMOTIDINE 20 MG TABLET PO SCH (08:38)
[2017-04-06] MEDS: predniSONE 20 MG TABLET PO SCH (08:38)
[2017-04-06] MEDS ORDERED: methylPREDNISolone SUCCINATE 125 MG/2 ML VIAL IVP SCH (09:00)
[2017-04-06] MEDS ORDERED: FUROSEMIDE 40 MG/4 ML VIAL IVP SCH (09:00)
[2017-04-06] MEDS: BUTALB/ACETAM/CAFF 50/325/40MG TABLET PO PRN ×2 (13:52→18:30)
[2017-04-06] MEDS: FUROSEMIDE 40 MG TABLET PO SCH (14:19)
[2017-04-06] MEDS: CIPROFLOXACIN 250 MG TABLET PO SCH ×2 (14:20→21:08)
[2017-04-07] MEDS: LEVALBUTEROL 1.25 MG/3 ML NEB INH PRN ×3 (02:30→11:00)
[2017-04-07 05:14] LABS: BASOPHILS % (AUTO) 0.4 %; EOSINOPHILS % (AUTO) 0.1 %; LYMPHOCYTES # (AUTO) 1.1 10^3/uL (1.5-3.5); LYMPHOCYTES % (AUTO) 12.6 %; MEAN CORPUSCULAR HGB CONC 34.2 g/dL (32.0-36.0); MEAN CORPUSCULAR VOLUME 90.6 fL (81.0-99.0); MONOCYTES % (AUTO) 11.3 %; NEUTROPHILS # (AUTO) 6.4 10^3/uL (1.5-6.6); NEUTROPHILS % (AUTO) 75.6 %; PLT - PLATELET COUNT 140 10^3/uL (130-450); RED BLOOD COUNT 3.54 10^6/uL (4.20-5.40); RED CELL DISTRIBUTION WIDTH 16.5 % (12.0-15.0); WHITE BLOOD COUNT 8.4 x10^3/uL (4.8-10.8)
[2017-04-07 05:26] LABS: ALBUMIN 3.4 g/dL (3.2-5.5); ALBUMIN/GLOBULIN RATIO 1.3 (1.0-2.2); BILIRUBIN,TOTAL 0.3 mg/dL (0.2-1.0); CALCIUM 8.6 mg/dL (8.5-10.3); CREATININE 1.1 mg/dL (0.4-1.0)
[2017-04-07] MEDS: MORPHINE SOL 10 MG/0.5 ML SYRINGE PO PRN ×2 (06:41→10:49)
[2017-04-07] MEDS: BUTALB/ACETAM/CAFF 50/325/40MG TABLET PO PRN (06:47)
[2017-04-07 06:50] VITALS: BP 106/60
[2017-04-07] MEDS: FORMOTEROL FUMARATE NEB 20 MCG/2 ML INH SCH (07:25)
[2017-04-07] MEDS: FUROSEMIDE 40 MG TABLET PO SCH (08:38)
[2017-04-07] MEDS: ENOXAPARIN 40 MG/0.4 ML SYRINGE SUBQ SCH (08:38)
[2017-04-07] MEDS: CIPROFLOXACIN 250 MG TABLET PO SCH (08:38)
[2017-04-07] MEDS: predniSONE 20 MG TABLET PO SCH (08:38)
[2017-04-07] MEDS: MAGNESIUM OXIDE 400 MG TABLET PO SCH (08:38)
[2017-04-07] MEDS: FAMOTIDINE 20 MG TABLET PO SCH (08:38)
[2017-04-07] MEDS: POLYETHYLENE GLYCOL 3350 17 GM PACKET PO SCH (08:39)
--- NOTE | 2017-04-07 10:28 | Discharge Plan ---
Discharge Plan Condition: Fair No Smoking: If you smoke, Please STOP! Call for help. Follow-up with: Jaleel Souza MD [Primary Care Provider] -
--- NOTE | 2017-04-07 10:31 | Discharge Plan ---
"Discharge Plan for SNF / LIA - DC Plan and Transition Orders Disposition: 03 SNF DC/Xfer Condition: Good SNF Transition Orders: Admit to: [facility] under the care of Jaleel Souza Discharge Diagnosis: UTI, COPD with asthma exacerbation, bilateral hearing loss , dementia Treatments & Other Orders: Complete antibiotic course with a probiotic to continue 7 days past treatment. No other changes. Oxygen Orders: 1-4L per nasal cannula to keep oxygen saturation greater than 90% . Lab Tests or X-Rays Orders: Not indicated unless symptoms arise. Medications: PLEASE REFER TO THE DISCHARGE MEDICATION LIST. Allergies and Adverse Reactions: Allergies Allergy/AdvReac Type Severity Reaction Status Date / Time aspirin Allergy Unknown unknown Verified 03/23/17 12:50 NSAIDS (Non-Steroidal Allergy Unknown Unknown Verified 03/23/17 12:50 Anti-Inflamma Penicillins Allergy Unknown unknown Verified 03/23/17 12:50 black pepper Allergy Unknown Verified 03/23/17 12:50 - Medications New Prescriptions: Ciprofloxacin/Ciprofloxa HCl [Ciprofloxacin ER 500 mg Tablet] 500 mg PO DAILY # 12 tbmp.24hr Morphine Sulfate [Morphine Sulf Oral (Roxanol)] 5 mg PO Q4H PRN #30 ml PRN Reason: Pain/Dyspnea Saccharomyces Boulardii [Florastor] 250 mg PO BID 24 Days #48 capsule - Diet Type: Geriatric Texture: Regular Liquids: Thin May have monthly special meal: Yes - Therapies | Activity Therapy: Evaluation | Treat if indicated: Speech, PT, OT Rehabilitation Potential: Maximize functional status, Maintain present ADL Functional Activity: No Restrictions Weight Bearing: Full Weight Assistance Devices: Wheelchair, Walker Additional Instructions: Care to continue at place of residence, [facility]. PCP is Jaleel Souza."
--- NOTE | 2017-04-07 10:34 | DISCHARGE SUMMARY ---
Discharge Summary Admit Date: 04/05/17 Discharge Date: 04/07/17 Discharging Provider: TEDDY Rivera Primary Care Provider: Jaleel Souza Code Status: Do Not Attempt Resuscitation Condition at Discharge: Good Discharge Disposition: 03 SNF DC/Xfer Discharge Facility Name: [facility] - DIAGNOSES Admission Diagnoses: Chronic obstructive pulmonary disease with (acute) exacerbation (J44.1) Urinary tract infection, site not specified (N39.0) Unspecified hearing loss, bilateral (H91.93) Altered mental status, unspecified (R41.82) Other forms of dyspnea (R06.09) Discharge Diagnoses with Status of Each Condition: COPD exacerbation (J44.1) chronic, stable. UTI (urinary tract infection) (N39.0) ongoing, antibiotic coarse to continue. Bilateral hearing loss (H91.93) chronic, stable. Dyspnea on exertion (R06.09) chronic, stable. Altered mental status (R41.82) chronic, stable. - HPI History of Present Illness: Yasmin Oneill is an ill-appearing elderly 89-year old white female who is profoundly hard of hearing and has a past medical history of asthma, COPD, CHF, dementia, peripheral neuropathy, chronic constipation, and chronic back pain. She resides at [facility], but lived most of her life in [place], [place]. The patient was seen in our ED yesterday with similar symptoms including, progressive SOB, fever, cough, and wheezing. She had minimal improvement, but refused the admission so she was sent on her way with an increased steroid dose. Today she arrived via ambulance with a temp of 101.5, dyspnea on exertion , cough, and wheezing. Once in the ED, a chest x-ray was obtain which did not indicate pneumonia. She agreed to admission, so brought to the nursing floor where she again, was resistant to cares and "grumpy" about the whole situation. She was prescribed morphine IV, which improved ease of breathing. - HOSPITAL COURSE Hospital Course: The following problems/diagnoses were prevalent during this hospital stay: Acute exacerbation of COPD with asthma: Patient has a long standing history of lung disease, but denies smoking or second hand exposure. A chest x-ray was completed which showed no evidence of pneumonia. According to her niece, Brittany , she has always had asthma as long as she has known. Patient was placed on Xopenex nebulizers, IV steroids, that were changed to PO due to lack of IV access and patient refusal, and patient's oxygen saturation/vital signs were monitored. UTI: A urine sample was obtained in the ED on 04/05/17 and is growing out E. coli with sensitivities appropriate to Cipro despite Levofloxicin allergy. Patient denies dysuria, hematuria or confusion. She is to continue an additional 12 days, daily and a probiotic to prevent diarrhea. Bilateral hearing loss: Patient has profound hearing loss. After arriving to the nursing floor, her hearing aide batteries were changed and cleaned. Continuous hearing aide use and speaking clearly and in close proximity. Altered mental status: Patient is not obviously confused, but says things such as, "I need cataract surgery so I can drive again". She is likely more confused , has baseline dementia, and the likely cause being acute UTI. Continuous nursing care was given and care was taken to ensure familiar items were within reach. Dyspnea on exertion: Patient at times, refuses oxygen use while ambulating and becomes quickly irritated with "the fuss". Patient displays a mild with increased efforts of breathing when traveling back to her bed or chair after being in the bathroom. Patient was encouraged to use oxygen and vital signs were taken. Patient remained on Fall precautions. Disposition: Patient was transferred via private cab back to [facility] in stable condition. Prescriptions were faxed and a hard-script was written for morphine which will help with airway clearance. Family was updated. - ALLERGIES Allergies/Adverse Reactions: Allergies Allergy/AdvReac Type Severity Reaction Status Date / Time aspirin Allergy Unknown unknown Verified 03/23/17 12:50 NSAIDS (Non-Steroidal Allergy Unknown Unknown Verified 03/23/17 12:50 Anti-Inflamma Penicillins Allergy Unknown unknown Verified 03/23/17 12:50 black pepper Allergy Unknown Verified 03/23/17 12:50 - MEDICATIONS Home Medications: Ambulatory Orders Medication Instructions Recorded Confirmed Ipratropium [Atrovent] 0.5 mg INH TID PRN 06/21/16 04/05/17 Nitroglycerin [Nitrostat] 0.3 mg SL Q5M PRN 06/21/16 04/05/17 predniSONE [Prednisone] 10 mg PO DAILY 06/21/16 04/05/17 Magnesium Hydroxide [Milk of 30 ml PO DAILY PRN 01/06/17 04/05/17 Magnesia] Albuterol Sulf [Ventolin Hfa 1 - 2 puffs INH Q4HR PRN #1 inhaler 03/23/17 Inhaler] Butalb/Acetaminophen/Caffeine 1 each PO Q6H PRN 04/05/17 04/05/17 [Oqoptk-Szrcoisj-Xrmp 50-300-40] Oseltamivir Phosphate 75 mg PO DAILY 04/05/17 04/05/17 Ciprofloxacin/Ciprofloxa HCl 500 mg PO DAILY #12 tbmp.24hr 04/07/17 [Ciprofloxacin ER 500 mg Tablet] Morphine Sulfate [Morphine Sulf 5 mg PO Q4H PRN #30 ml 04/07/17 Oral (Roxanol)] Saccharomyces Boulardii [Florastor] 250 mg PO BID 24 Days #48 capsule 04/07/17 - PHYSICAL EXAM AT DISCHARGE General Appearance: positive: No acute distress, Alert Eyes Bilateral: positive: PERRL, Other (scleral icterus, conjuctivae pale.) ENT: positive: ENT inspection nml, Pharynx nml, Dry mucous membranes Neck: positive: Nml inspection, Thyroid nml, No JVD, Trachea midline, Stiff neck Respiratory: positive: Chest non-tender, No respiratory distress, Wheezes, Rhonchi Cardiovascular: positive: Regular rate & rhythm, No gallop, Systolic murmur Peripheral Pulses: positive: 1+ Abdomen: positive: Non-tender, No organomegaly, Nml bowel sounds, No distention Back: positive: Nml inspection Skin: positive: No rash, Warm, Dry Extremities: positive: Non-tender, Pedal edema (left leg 3xs larger than right.) Neurologic/Psychiatric: positive: Oriented x3, Weakness, Sensory loss, Slurred/ abnml speech, Depressed mood/affect, Other (profound [place]) Reflexes: Bicep (R): 2+, Bicep (L): 2+ - LABS Result Diagrams: 04/07/17 05:00 04/07/17 05:00 - DIAGNOSTIC IMAGING Diagnostic Imaging Results: Prelim report reviewed, Final report reviewed Diagnostic Imaging Results Comments: Chest x-ray: FINDINGS: Lungs/Pleura: No focal opacities evident. No pleural effusion. No pneumothorax. Lateral right mid to lower chest skin fold. Mediastinum: Atherosclerotic aortic calcifications. Tortuous aorta. Other: Diffuse osteopenia. Convex left thoracolumbar scoliosis. Lateral right 10th rib fracture was more apparent on prior exam. IMPRESSION: No consolidation evident. - FOLLOW UP Follow Up: Disposition: 03 SNF DC/Xfer Condition: Good SNF Transition Orders: [facility] of Jaleel Souza Discharge Diagnosis: UTI, COPD with asthma exacerbation, bilateral hearing loss , dementia Treatments & Other Orders: Complete antibiotic course with a probiotic to continue 7 days past treatment. No other changes. Oxygen Orders: 1-4L per nasal cannula to keep oxygen saturation greater than 90% . Lab Tests or X-Rays Orders: Not indicated unless symptoms arise. Medications: PLEASE REFER TO THE DISCHARGE MEDICATION LIST. Allergies and Adverse Reactions: Allergies Allergy/AdvReac Type Severity Reaction Status Date / Time aspirin Allergy Unknown unknown Verified 03/23/17 12:50 NSAIDS (Non-Steroidal Allergy Unknown Unknown Verified 03/23/17 12:50 Anti-Inflamma Penicillins Allergy Unknown unknown Verified 03/23/17 12:50 black pepper Allergy Unknown Verified 03/23/17 12:50 - Medications New Prescriptions: Ciprofloxacin/Ciprofloxa HCl [Ciprofloxacin ER 500 mg Tablet] 500 mg PO DAILY # 12 tbmp.24hr Morphine Sulfate [Morphine Sulf Oral (Roxanol)] 5 mg PO Q4H PRN #30 ml PRN Reason: Pain/Dyspnea Saccharomyces Boulardii [Florastor] 250 mg PO BID 24 Days #48 capsule - Diet Type: Geriatric Texture: Regular Liquids: Thin May have monthly special meal: Yes - Therapies | Activity Therapy: Evaluation | Treat if indicated: Speech, PT, OT Rehabilitation Potential: Maximize functional status, Maintain present ADL Functional Activity: No Restrictions Weight Bearing: Full Weight Assistance Devices: Wheelchair, Walker Additional Instructions: Care to continue at place of residence, [facility]. PCP is Jaleel Souza. - TIME SPENT Time Spent in Discharge (Minutes): 60
[2017-04-07] MEDS ORDERED: CIPROFLOXACIN 250 MG TABLET PO SCH (12:30)
== END 2017-04-07 12:12 | disposition home or self-care (01) | DRG 191 ==
LOC: EDUNIT# → ED 07:27 → MS3 09:02
PROVIDERS: ADMIT Nurse Practitioner; ATTEND Nurse Practitioner
DX: J44.1 Chronic obstructive pulmonary disease with (acute) exacerbation (principal); N30.00 Acute cystitis without hematuria; J45.901 Unspecified asthma with (acute) exacerbation; H91.93 Unspecified hearing loss, bilateral; F03.90 Unspecified dementia, unspecified severity, without behavioral disturbance, psychotic disturbance, mood disturbance, and anxiety; B96.20 Unspecified Escherichia coli [E. coli] as the cause of diseases classified elsewhere; G62.9 Polyneuropathy, unspecified; I73.9 Peripheral vascular disease, unspecified; K21.9 Gastro-esophageal reflux disease without esophagitis; F41.9 Anxiety disorder, unspecified; Z66 Do not resuscitate; Z79.52 Long term (current) use of systemic steroids; Z88.1 Allergy status to other antibiotic agents; Z86.79 Personal history of other diseases of the circulatory system
CPT/HCPCS: 36415; 51701; 71045; 80048; 80053; 81001; 81003; 83605; 83690; 83735; 83880; 84100; 84484; 85025; 87040; 87086; 87275; 87276; 93005; 93306; 94640; 96374; 99284; 99285